=== PATIENT | male | born 1965 | race Caucasian/White ===

== ENCOUNTER → 2017-06-13 | Outpatient (CLI) | payer OTHER ==
--- NOTE | 2017-06-13 16:16 | XR ---
Lumbosacral spine HISTORY: Low back pain, sciatica 5 views of the lumbosacral spine Lumbar vertebral bodies show preserved height, alignment, and bone mineralization. There is multileve l spondylosis present. Some sclerosis of the right sacroiliac joint may be due to stress change. Ther e is a mild spinal curvature. 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 Loss of disc height present L4-5 and L 5-S1. Sclerosis present in the posterior elements of the lower lumbar spine. IMPRESSION: Degenerative disc disease and facet arthropathy. 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 Conside r lumbar MRI.
== END ==
LOC: RADXRMAIN 12:57
PROVIDERS: ATTEND Internal Medicine
DX: M51.36 Other intervertebral disc degeneration, lumbar region (principal); M43.06 Spondylolysis, lumbar region; M46.96 Unspecified inflammatory spondylopathy, lumbar region
CPT/HCPCS: 72110

== ENCOUNTER → 2017-09-14 | Outpatient (CLI) | payer OTHER ==
--- NOTE | 2017-09-14 10:38 | MR ---
EXAMINATION TYPE: MR thoracic spine wo con DATE OF EXAM: 09/14/2017 COMPARISON: NONE HISTORY: 51-year-old male Back pain, muscle spasms x 4 yrs. Ankylosing hyperostosis TECHNIQUE: Multiplanar, multisequence images of the thoracic spine were obtained without IV contrast. FINDINGS: Mild diffuse inhomogeneous signal of the marrow without suspicious bone marrow replacement. Findings suggest red marrow hyperplasia. Vertebral body heights are preserved. Alignment is maintained. Mild to moderate degenerative disc disease mid to lower thoracic spine with small endplate Schmorl's nodes and some disc desiccation and mild disc height loss. Scattered mild facet degenerative changes also present. At T4-T5, there is some right-sided ligamentum flavum thickening without spinal canal or neuroforamin al stenosis. At T5-T6, tiny left paracentral disc protrusion without significant canal or foraminal stenosis. At T6-T7, focal central, right paracentral disc protrusion focally indenting the ventral cord but not contributing to significant spinal canal or neuroforaminal stenosis. At T10-T11, there is right-sided facet degenerative change causing mild to moderate neuroforaminal st enosis. There is also some left-sided ligamentum flavum thickening. No spinal canal stenosis. Bulky left anterolateral endplate spurs in the lower thoracic spine. No prevertebral or paravertebral soft tissue probably seen. Normal course and signal intensity of the thoracic spinal cord. IMPRESSION: 1. Mild to moderate degenerative disc disease mid to lower thoracic spine. There are a few tiny disc herniations, largest at T6-T7 which focally indents the ventral cord but does not cause any significa nt spinal canal stenosis. 2. Scattered mild facet degenerative change. This contributes to mild to moderate neuroforaminal sten osis on the right at T10-T11. 3. Red marrow hyperplasia which can be seen in the setting of anemia, obesity, smoking, and chronic d isease.
== END | disposition home or self-care (01) ==
LOC: RADMRIMAIN 09:38
PROVIDERS: ATTEND Physical Medicine & Rehabilitation
DX: M99.72 Connective tissue and disc stenosis of intervertebral foramina of thoracic region (principal); M51.24 Other intervertebral disc displacement, thoracic region; M51.34 Other intervertebral disc degeneration, thoracic region; M47.814 Spondylosis without myelopathy or radiculopathy, thoracic region
CPT/HCPCS: 72146

== ENCOUNTER → 2019-11-07 | Outpatient (CLI) | payer MEDICAID ==
--- NOTE | 2019-11-07 10:55 | XR ---
EXAMINATION TYPE: XR chest 2V DATE OF EXAM: 11/07/2019 COMPARISON: NONE HISTORY: Presurgical study. TECHNIQUE: Frontal and lateral views of the chest are obtained. FINDINGS: There is no focal air space opacity, pleural effusion, or pneumothorax seen. The cardiac silhouette size is upper limits of normal. The osseous structures are intact. IMPRESSION: No acute cardiopulmonary process.
== END | disposition home or self-care (01) ==
LOC: RADXRMAIN 10:32
PROVIDERS: ATTEND Orthopaedic Surgery Orthopaedic Surgery of the Spine
DX: Z01.818 Encounter for other preprocedural examination (principal); M43.17 Spondylolisthesis, lumbosacral region
CPT/HCPCS: 71046

== ENCOUNTER 2019-11-11 09:47 | Observation (INO) | payer MEDICAID ==
[2019-11-09 10:12] VITALS: BMI 39.5
[~2019-11-11 09:47] MED LIST: ceFAZolin 1,000 MG in SODIUM CHLORIDE 0.9% IRRIGATIO 1,000 ML IRRIGATION ONE; ceFAZolin 3 GM in SODIUM CHLORIDE 0.9% 100 ML IVPB ONE
[2019-11-11] MEDS: LACTATED RINGERS 1,000 ML IV SCH (10:30)
[2019-11-11] MEDS ORDERED: LIDOCAINE 1% (10MG/ML) FOR IV START INTRADERMA ONE (10:31)
[2019-11-11] MEDS ORDERED: ONDANSETRON 4 MG/2 ML VIAL ONE (10:34)
[2019-11-11] MEDS ORDERED: ONDANSETRON 4 MG/2 ML VIAL IVP ONE (10:45)
[2019-11-11] MEDS ORDERED: LACTATED RINGERS 1,000 ML IV ONE ×2 (13:00→15:42)
[2019-11-11] MEDS ORDERED: LIDOCAINE 1% INJ 10MG/ML (20 ML MDV) ONE (13:18)
[2019-11-11] MEDS ORDERED: fentaNYL (PF) 50 MCG/ML 2 ML AMP ONE (13:18)
[2019-11-11] MEDS ORDERED: NEOSTIGMINE 1 MG/ML 10 ML VIAL ONE (13:18)
[2019-11-11] MEDS ORDERED: GLYCOPYRROLATE 0.2 MG/ML 2 ML VIAL ONE (13:18)
[2019-11-11] MEDS ORDERED: ROCURONIUM BROMIDE 10 MG/ML 5 ML VIAL IV ONE (13:18)
[2019-11-11] MEDS ORDERED: MIDAZOLAM 2 MG/2 ML VIAL ONE (13:18)
[2019-11-11] MEDS ORDERED: PROPOFOL 10 MG/ML 20 ML VIAL IV ONE (13:18)
[2019-11-11] MEDS ORDERED: VASOPRESSIN 20 UNIT/ML 1 ML VIAL ONE (13:18)
[2019-11-11] MEDS ORDERED: ALBUMIN HUMAN 5% (12.5gm) 250 ML BOTTLE IVPB ONE (13:18)
[2019-11-11] MEDS ORDERED: ePHEDrine SULFATE/0.9% NACL/PF 50 MG/5 ML SYRINGE IV ONE (13:18)
[2019-11-11] MEDS ORDERED: SUCCINYLCHOLINE CHLORIDE VIAL 200 MG/10 ML VIAL IV ONE (13:18)
[2019-11-11] MEDS ORDERED: PHENYLEPHRINE-0.9% NACL SYG 1 MG/10 ML SYRINGE ONE (13:18)
[2019-11-11] MEDS ORDERED: THROMBIN (BOVINE) 5,000 UNIT VIAL TOPICAL ONE (13:23)
[2019-11-11] MEDS ORDERED: GELATIN SPONGE,ABSORB (LARGE) 1 EACH SPONGE TOPICAL ONE (13:23)
[2019-11-11] MEDS ORDERED: LIDOCAINE 0.5%-EPI 1:200,000 50 ML VIAL SQ ONE (14:17)
[2019-11-11] MEDS ORDERED: ceFAZolin 1,000 MG in SODIUM CHLORIDE 0.9% 1,000 ML IRRIGATION ONE (15:11)
[2019-11-11] MEDS ORDERED: HYDROcodone/APAP 5-325MG 1 EACH TAB PO PRN (16:35)
[2019-11-11] MEDS ORDERED: BENZOCAINE/MENTHOL LOZENG 1 EACH LOZENGE MUCOUS MEM PRN (16:35)
[2019-11-11] MEDS ORDERED: ONDANSETRON 4 MG/2 ML VIAL IVP PRN (16:35)
[2019-11-11] MEDS ORDERED: HYDROmorphone 0.5 MG/0.5 ML SYRINGE IVP PRN (16:35)
[2019-11-11] MEDS ORDERED: MAGNESIUM HYDROXIDE 2,400 MG/10 ML CUP PO PRN (16:35)
[2019-11-11] MEDS ORDERED: FAMOTIDINE 20 MG TAB PO PRN (16:37)
[2019-11-11] MEDS ORDERED: HYDROcodone/APAP 7.5-325MG 1 EACH TAB PO PRN (16:37)
--- NOTE | 2019-11-11 16:44 | P.OP ---
Date of Procedure: 11/11/19 Preoperative Diagnosis: Spondylolysis L5, spondylolisthesis L5-S1, lower extremity radiculopathy, low back pain Postoperative Diagnosis: Same Anesthesia: GETA Pathology: none sent Condition: stable Disposition: PACU Description of Procedure: DESCRIPTION OF PROCEDURE(S): BRIEF OPERATIVE NOTE Preoperative Diagnosis: Spondylolysis L5, spondylolisthesis L5-S1, lower extremity radiculopathy, low back pain, Morbid obesity Postoperative Diagnosis: Same Procedure: Laminectomy and decompression L5-S1 Computer navigation aided Minimally invasive Posterior lateral decompression and fusion L5-S1 Minimally invasive Transforaminal lumbar interbody fusion for a 360 fusionL5-S1 Discectomy for decompression L5-S1 Placement of interbody graftL5-S1 Use of computer navigation for fusionL5-S1 Local autogenous bone grafting Aspiration of bone marrow from the pedicle of L5 Use of bone graft extenders Increased level of difficulty due to morbid obesity and body habitus Surgeon: Dr. Bethea Cementer Hand: Jaime COELLO who is present throughout the entire the case persistence during positioning, dissection, exposure, visualization, and all crucial elements of the case as well as closure. Anesthesia: General anesthesia per Dr. Suh Estimated blood loss: Approximately 200 mL Complications: None apparent Components implanted: K2M minimally invasive [place] pedicle screw system withscrews measuring 6.5 mm in diameter to rods one Jackson interbody cage with 10 mL of osteo amp bio4 bone graft substitute and 30 mL of the BX bone fibers to supplement the local autogenous bone graft and bone marrow aspirate Disposition: To recovery room in good stable condition. OPERATIVE INDICATIONS The patient has had severe issues at their lower extremity in her lower back over the past several Years which has been even worse over the past several months. He has been having worsening back pain which has been debilitating for him and causing him severe inability to do activities. he is unable to obtain any comfort. We did aggressive conservative treatment with medications therapy and interventional pain management however he was not having any relief. Imaging showed a spondylolysis with dynamic spondylolisthesis at L5-S1 and evidence of stenosis. She also showed evidence of a listhesis with some dynamic instability. The patient has been through conservative treatment. We discussed various treatment options including surgery, and the patient wishes to proceed with surgery We discussed the risk, patient's alternatives and benefits of surgery including but not limited to, risk of bleeding risk of infection, risk of need for further surgery, risk of decreased, loss of motion, muscle function, malunion nonunion, hardware failure, nerve damage, paralysis, heart attack, blindness and . She understood issues with the current pandemic and the possibility of exposure. OPERATIVE SUMMARY After discussing all the risks, patient alternatives and benefits at length, the patient elected to proceed with surgical intervention, signed informed consent, and presented for their procedure. The patient was seen and examined in the preoperative holding area and the surgical site was marked. The patient was given antibiotics and brought to the operating room. The patient was sedated and intubated by anesthesia in standard fashion. The patient was positioned on to the operating room table in a prone position on the appropriate frame which was well-padded and well molded. We were careful to pad any bony prominences and pressure points. We were careful to maintain the patient's cervical spine and good neutral alignment and position throughout. The patient was prepped and draped in a normal standard fashion. An appropriate timeout and keystone protocol performed. We were able to proceed with the surgery. The local wound area was infiltrated with local anesthetic. I was able utilize C-arm guidance to establish appropriate position over the pedicles bilaterally at the appropriate levelsOf L5-S1 . With the appropriate levels confirmed was able to make small stab incisions over the appropriate pedicle sites bilaterally. Utilizing C-arm in the computer navigation device I was able to establish bony landmarks at the right iliac crest for a bony reference point for the navigation device. I was able to establish a Jamshidi needle over the lateral aspect of the pedicle and advanced the trocar into the pedicle being careful not to breech superiorly inferiorly medially or laterally using computer navigation device. Position was confirmed regularly with AP and lateral images on C-arm and with the computer navigation device. I was able to establish the trocar into the pedicle appropriately into the posterior aspect of the vertebral body bilaterally at the appropriate levels. This was done at each of the pedicle positions and each of the vertebrae. I was able place the guidewire into the trocar and into the vertebral body appropriately under C-arm guidanceFor placement of the screws at L5-S1. At L5 on the right I did withdraw approximately 25 mL of bone marrow aspirate for use later in the case for grafting. Dissection was taken down over the wire to the appropriate starting position for the screw placed. The appropriate length screw was chosen, threaded over the guidewire and screwed appropriately into the pedicle and vertebral body under C-arm guidance in excellent alignment and position with good bony purchase. This is done at each of the screw sites at the appropriate levels. With the screws intact I extended the incision to connect the screw hole sites on the most symptomatic side on the Left. I dissected down to establish access over the pars and lamina to the base of the spinous process. I was able to expose the facet joint. The capsule the facet was taken down and showed some facet arthrosis at the joint. I was able to use a combination of curettes and Kerrison rongeurs and a high-speed drill to take down the facet joint and do a facetectomy. I was able get excellent foraminal decompression and central decompression with undermining across midline to perform a laminectomy centrally and contralaterally. As able get good central decompressionAt L5-S1. The ligamentum flavum was taken down to further decompress centrally and at bilateral neural foramen. I was able to expose the disc space and visualize the traversing nerve root. Note was made of some disc protrusion and disc herniation that was adherent to the traversing nerve root at the level causing further compression of the nerve root. I was able to establish a annulotomy at the appropriate level protecting soft tissue and neural structures. Note was made of some disc desiccation at the disc I performed a complete discectomy with accommodation of curettes and rasps and scrapers. I was able get good endplate preparation at the disc space. I sized for the appropriate size interbody spacer protecting the soft tissue and neural structures. The wound was copiously irrigated and suctioned dry. There is no evidence of any dural tear or leak. I was able to pack the disc space with local autogenous bone graft as well as a small amount of bone graft which was also placed into the interbody cage itself. Protecting the soft tissue structures and neural structures I was able place the interbody cage in Between the interbody space. There was some evidence that the cage was entering into the inferior endplate at L5 but this had good stability with fit and fill at the interbody space. His issues was confirmed with C-arm guidance. Good hemostasis maintained. There is no evidence of any dural tear or leak. The wound was irrigated and suctioned dry. With the hardware intact, intraoperative C-arm imaging was again taken which showed good alignment and position of the hardware at the appropriate levelsOf L5-S1. We were then able to measure, contour and place the rods and appropriate hardware bilaterally. I was able to place capcrews, tighten them down, and torque them with the torque screwdriver appropriately. With this intact I was able to place the local autogenous bone graft with additional bone graft enhancer as necessary into the posterior lateral gutters over the decorticated transverse processes and facet joints on the contralateral side. The remainder of the bone graft was placed over the facet joint on the contralateral side after taking down the facet joint capsule. With the bone graft intact, a stable construct, and good decompression at the appropriate levels, we were able to proceed with closure. Good hemostasis was maintained. There is no evidence of dural tear or leak. The fascia was closed for a watertight closure. he subcuticular tissue was closed with absorbable suture. The wound was cleaned an d dried and dressed with the appropriate dressing. The drapes were broken down. The patient was gently rolled back onto their hospital bed being careful to maintain their cervical spine and good neutral alignment and position. They were woken up by anesthesia, extubated, and brought to the recovery room in good stable condition. The patient will be admitted to the hospital for appropriate postoperative care, medical management and monitoring. We will continue to follow them closely about the postoperative course.
[2019-11-11] MEDS: HYDROmorphone 0.5 MG/0.5 ML SYRINGE IVP PRN ×4 (17:08→17:33)
[2019-11-11] MEDS: SODIUM CHLORIDE 0.9% 1,000 ML IV SCH (17:24)
[2019-11-11] MEDS ORDERED: diphenhydrAMINE 50 MG/ML 1 ML VIAL IVP ONE (17:32)
[2019-11-11 18:10] VITALS: RESP 17
[2019-11-11] MEDS: ALPRAZolam 1 MG TAB PO SCH (20:33)
[2019-11-11] MEDS: HYDROmorphone 1 MG/ML 1 ML SYRINGE IVP PRN (21:00)
[2019-11-12] MEDS: ceFAZolin 3 GM in SODIUM CHLORIDE 0.9% 100 ML IVPB SCH ×2 (00:02→08:50)
[2019-11-12] MEDS: HYDROmorphone 1 MG/ML 1 ML SYRINGE IVP PRN ×2 (01:46→06:17)
[2019-11-12] MEDS: LACTATED RINGERS 1,000 ML IV SCH (06:23)
[2019-11-12] MEDS: SODIUM CHLORIDE 0.9% 1,000 ML IV SCH (06:23)
[2019-11-12 07:36] LABS: Basophils % (A) 0 %; Eosinophils # (A) 0.1 k/uL (0-0.7); Eosinophils % (A) 1 %; HCT 41.1 % (39.0-53.0); HGB 13.6 gm/dL (13.0-17.5); Lymphocytes # (A) 0.6 k/uL (1.0-4.8); Lymphocytes % (A) 8 %; MCH 32.8 pg (25.0-35.0); MCHC 33.1 g/dL (31.0-37.0); MCV 99.1 fL (80.0-100.0); Mean Platelet Volume 6.8; Monocytes # (A) 0.5 k/uL (0-1.0); Monocytes % (A) 6 %; Neutrophils # (A) 6.5 k/uL (1.3-7.7); Neutrophils % (A) 84 %; Platelet Count 177 k/uL (150-450); RBC 4.15 m/uL (4.30-5.90); RDW 12.2 % (11.5-15.5); WBC 7.8 k/uL (3.8-10.6)
[2019-11-12 07:47] LABS: African American GFR (CKD) >90 (>60 ml/min/1.73 sqM); Anion Gap 7 mmol/L; Blood Urea Nitrogen 9 mg/dL (9-20); Calcium 8.4 mg/dL (8.4-10.2); Carbon Dioxide 29 mmol/L (22-30); Chloride 95 mmol/L (98-107); Glucose 118 mg/dL (74-99); Non-African American GFR(CKD) >90 (>60 ml/min/1.73 sqM); Potassium 4.1 mmol/L (3.5-5.1); Sodium 131 mmol/L (137-145)
[2019-11-12] MEDS: HYDROcodone/APAP 5-325MG 1 EACH TAB PO PRN ×2 (08:49→13:16)
[2019-11-12] MEDS: ALPRAZolam 1 MG TAB PO SCH (08:50)
[2019-11-12] MEDS ORDERED: SENNOSIDES-DOCUSATE SODIUM 1 EACH TAB PO SCH (09:00)
[2019-11-12] MEDS ORDERED: LISINOPRIL-HCTZ 20-25 MG 1 EACH TAB PO SCH (09:00)
--- NOTE | 2019-11-12 09:47 | FL ---
EXAMINATION TYPE: FL guidance operating room, XR lumbar spine 2 or 3V DATE OF EXAM: 11/11/2019 COMPARISON: NONE HISTORY: Lumbar fusion TECHNIQUE: Fluoroscopy. FINDINGS: Fluoroscopic guidance was provided during procedure for performing physician. A total of 25 seconds of fluoroscopic time was utilized during the procedure and 2 spot images was acquired. Ple ase see operative report for additional details. IMPRESSION: As Above.
--- NOTE | 2019-11-12 11:28 | P.CONS ---
History of Present Illness - Reason for Consult Consult date: 11/12/19 Medical management Requesting physician: Jennifer Bethea - History of Present Illness HISTORY OF PRESENT ILLNESS This is a 53-year-old male patient of Dr. Nuñez with past medical history of hypertension, gastroesophageal reflux disease, degenerative disc disease, osteoarthritis, tobacco use and dependence, daily alcohol use, marijuana use. Patient has been brought in the hospital under the care of Dr. Bethea for spondylolysis L5, spondylolisthesis L5-S1, lower extremity radiculopathy, low back pain status post laminectomy and decompression L5-S1. Patient is seen on postoperative day #1. His back pain is fairly well controlled. He is complaining of feeling tired. He states he has had ongoing back problems for greater than 10 years and his leg was giving out. Patient has been afebrile, heart rate 104, blood pressure 107/62 and pulse ox 92% on room air. Blood work reveals WBC 7.8, hemoglobin 13.6, platelet count 177. Sodium 131, potassium 4.1, chloride 95, CO2 29, BUN 9 and creatinine 0.9. Blood sugar 118. Patient is eating well with no nausea or vomiting. He is reaching 2000 on incentive spirometry. Patient believes that he may go home today. He is discharge plan is to return home with his . Patient was noted by nursing staff to have a drop in his pulse ox to 88 and 89% while he was sleeping. REVIEW OF SYSTEMS Constitutional: No fever, no chills, no night sweats. No weight change. No weakness, fatigue or lethargy. EENT: No headache. No blurred vision or double vision, no loss of vision. No loss of Hearing, no ringing in the ears, no dizziness. No nasal drainage or congestion. No epistaxis. No sore throat. Lungs: No shortness of breath, cough, no sputum production. No wheezing. Cardiovascular: No chest pain, no lower extremity edema. No palpitations. No paroxysmal nocturnal dyspnea. No orthopnea. No lightheadedness or dizziness. No syncopal episodes. Abdominal: No abdominal pain. No nausea, vomiting. No diarrhea. No constipation. No bloody or tarry stools. No loss of appetite. Genitourinary: No dysuria, increased frequency, urgency. No urinary retention. Musculoskeletal: No myalgias. No muscle weakness, no gait dysfunction, no frequent falls. Reports expected back pain. No neck pain. Integumentary: No wounds, no lesions. No rash or pruritus. No unusual bruising. No change in hair or nails. Neurologic: No aphasia. No facial droop. No change in mentation. No head injury. No headache. No paralysis. No paresthesia. Psychiatric: No depression. No anxiety. No mood swings. Endocrine: No abnormal blood sugars. No weight change. SOCIAL HISTORY Patient is a smoker three-quarter pack per day for 45 years. He also drinks at least 6 beers per day. Patient uses CBD oil and smokes marijuana occasionally. He lives at home with his . He retired in May 2019 and is on disability. 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 FAMILY HISTORY Father is at age 66 with history of Alzheimer's dementia and TIA. Mother at age 73 from some type of cancer. Patient has 1 brother with no major medical problems. Patient has a total of 4 sisters one has from motor vehicle accident and one has rheumatoid arthritis. Patient has 3 children and one son age 24 needs a hip replacement. PHYSICAL EXAMINATION Gen: This is a 53-year-old male. He is sitting up in bed and appears to become 12 and in no acute distress. HEENT: Head is atraumatic, normocephalic. Pupils equal, round. Sclerae is anicteric. NECK: Supple. No JVD. No lymphadenopathy. No thyromegaly. LUNGS: Clear to auscultation. No wheezes or rhonchi. No intercostal retractions. HEART: Regular rate and rhythm. No murmur. ABDOMEN: Soft. Bowel sounds are present. No masses. No tenderness. EXTREMITIES: No pedal edema. No calf tenderness. NEUROLOGICAL: Patient is awake, alert and oriented x3. Cranial nerves 2 through 12 are grossly intact. ASSESSMENT AND PLAN 1. Spondylolysis L5, spondylolisthesis L5-S1, lower extremity radiculopathy, low back pain status post laminectomy and decompression L5-S1. Continue current pain management, PT and OT per orthopedics. Continue incentive spirometry to reduce incidence of atelectasis and hospital acquired pneumonia. 2. Hypertension. Continue lisinopril hydrochlorothiazide 1 daily. 3. GERD. Continue famotidine. 4. Generalized anxiety disorder. Continue Xanax 1 mg twice daily. 5. Suspected AVERY. Recommend OP sleep study. 6. Tobacco use and dependence. 7. Alcohol use. 8. Alcohol and CBD use. Thank you Dr. Bethea for this consultation. We will be happy to follow along with you in the care of this patient. Discharge plan: home. Impression and plan of care have been directed as dictated by the signing ph ysician. Patience Hernandez nurse practitioner acting as scribe for signing physician. Past Medical History Past Medical History: GERD/Reflux, Hypertension, Osteoarthritis (OA) Additional Past Medical History / Comment(s): varicose veins, arthritis in back, degenerative disks, herniated disk, spondylolysis, History of Any Multi-Drug Resistant Organisms: None Reported Past Surgical History: Orthopedic Surgery Additional Past Surgical History / Comment(s): surgery for fx jaw, surgery for Fx nose, left knee arthroscopy, surgery to repair rectal fisutla Past Anesthesia/Blood Transfusion Reactions: No Reported Reaction Past Psychological History: Anxiety, Depression Smoking Status: Current every day smoker Past Alcohol Use History: Daily Additional Past Alcohol Use History / Comment(s): smokes 3/4 PPD, has smoked for 40 yrs. PATIENT REPORTS DRINKING 6 BEERS DAILY, HAS NEVER WITHDRAWN FROM ETOH IN PAST WHEN NOT DRINKING Past Drug Use History: Marijuana Additional Drug Use History / Comment(s): CBD lotion, SMOKES MARIJUANA OCCASIONALLY - Past Family History Mother Family Medical History: Cancer Medications and Allergies Home Medications Medication Instructions Recorded Confirmed Type ALPRAZolam [Xanax] 1 mg PO BID 11/09/19 11/11/19 History Famotidine 10 mg PO DAILY PRN 11/09/19 11/11/19 History Hydrocodone/Acetaminophen [[place] 1 tab PO TID PRN 11/09/19 11/11/19 History 7.5-325] Lisinopril-Hctz 20-25 mg 1 tab PO DAILY 11/09/19 11/11/19 History [Zestoretic 20-25] Cannabidiol (Cbd) [Epidiolex] 0 mg PO DIRECTED 11/10/19 11/11/19 History Allergies Allergy/AdvReac Type Severity Reaction Status Date / Time aspirin Allergy Nausea Verified 11/11/19 10:06 NSAIDS (Non-Steroidal Allergy Nausea Verified 11/11/19 10:06 Anti-Inflamma Physical Exam Vitals: Vital Signs Temp Pulse Pulse Resp BP BP Pulse Ox 11/12/19 07:00 98.4 F 104 H 17 107/62 92 L 11/12/19 01:45 98.2 F 101 H 115/74 93 L 11/11/19 19:30 90 102/63 95 11/11/19 19:05 89 119/76 94 L 11/11/19 19:00 90 123/74 93 L 11/11/19 18:55 97.5 F L 92 115/71 94 L 11/11/19 18:45 84 115/71 93 L 11/11/19 18:30 96 129/77 96 11/11/19 18:15 91 92/68 90 L 11/11/19 18:09 97.7 F 103 H 17 111/67 94 L 11/11/19 18:00 97.5 F L 101 H 111/67 11/11/19 17:33 109 H 18 95/57 93 L 11/11/19 17:18 101 H 18 91/51 95 11/11/19 17:03 101 H 18 93/49 95 11/11/19 16:48 97 F L 114 H 18 108/50 96 11/11/19 10:19 98.4 F 104 H 20 126/82 98 Intake and Output 11/11/19 11/12/19 11/12/19 22:59 06:59 14:59 Intake Total 1146 1490 Output Total 900 Balance 1146 590 Intake: IV 1026 Intake, IV Titration 850 Amount Sodium Chloride 0.9% 1, 750 000 ml @ 75 mls/hr IV . [id number] [facility] Rx#:[id number] ceFAZolin 3 gm In Sodium 100 Chloride 0.9% 100 ml @ 200 mls/hr IVPB Q8HR [facility] Rx#:[id number] Oral 120 640 Output: Urine 900 Other: Voiding Method Toilet Toilet # Voids 1 1 Weight 135 kg Results CBC & Chem 7: 11/12/19 06:54 11/12/19 06:54 Labs: Abnormal Lab Results - Last 24 Hours (Table) 11/12/19 11/12/19 Range/Units 06:54 06:54 RBC 4.15 L (4.30-5.90) m/uL Lymphocytes # 0.6 L (1.0-4.8) k/uL Sodium 131 L (137-145) mmol/L Chloride 95 L (98-107) mmol/L Glucose 118 H (74-99) mg/dL
[2019-11-12 14:11] VITALS: BP 123/83; PULSE 103; TEMP 99.8
--- NOTE | 2019-11-12 14:43 | P.DS ---
Providers Date of admission: 11/12/19 01:46 Attending physician: Jennifer Bethea Consults: 11/11/19 16:35 Consult Physician Routine Consulting Provider: Eze Shook Reason/Comments: Medical management Do you want consulting provider notified?: Yes Primary care physician: [facility] Course: The patient presented on the day of admission as per their operative note.he had a dynamic spondylolisthesis with spondylolysis at L5-S1. He feels that his back is sore but he has been able to get up and around. He feels his pain is adequately controlled with oral medication. He has been able to void freely. He is passing gas and tolerating his regular diet. Physical Exam The incision site is clean dry and intact. There is no erythema no drainage. There is no purulence no evidence of infection.his back incision site appears clear with the dressing intact. Abdomen soft and nontender. Chest has good excursion with deep inspiration and expiration. The patient has active and passive range of motion intact at the upper and lower extremities. There is no acute change in neurologic status.he has sustained dorsal flexion plantarflexion and EHL intact. Thighs and calves are Soft nontender. Hospital Course postoperative day 1 status post minimally invasive decompression and fusion L5 S1 for his dynamic spondylolisthesis with stenosis and spondylolysis. Improving well. The patient has been making good progress postoperatively. They have completed the prophylactic antibiotics without any signs or symptoms of infection. The patient has been able to advance their diet, and is tolerating diet adequately. The pain was initially controlled with IV medications and is now controlled appropriately with oral medications. The patient has been able to increase their mobilization. The patient has progressed appropriately. I think they are in good stable condition for discharge today. They will be sent home with appropriate prescriptions. we will give him a new prescription for [place]. I answered their questions to the best of my ability in a language that they can understand and they are agreeable with the plan. They will follow up as directedin approximately 2 weeks or sooner if he is having any problems.. Patient Condition at Discharge: Fair Plan - Discharge Summary Discharge Rx Participant: Yes New Discharge Prescriptions: No Action Lisinopril-Hctz 20-25 mg [Zestoretic 20-25] 1 tab PO DAILY Hydrocodone/Acetaminophen [[place] 7.5-325] 1 tab PO TID PRN PRN Reason: Pain ALPRAZolam [Xanax] 1 mg PO BID Famotidine 10 mg PO DAILY PRN PRN Reason: Heartburn Cannabidiol (Cbd) [Epidiolex] 0 mg PO DIRECTED Discharge Medication List ALPRAZolam [Xanax] 1 mg PO BID 11/09/19 [History] Famotidine 10 mg PO DAILY PRN 11/09/19 [History] Hydrocodone/Acetaminophen [[place] 7.5-325] 1 tab PO TID PRN 11/09/19 [History] Lisinopril-Hctz 20-25 mg [Zestoretic 20-25] 1 tab PO DAILY 11/09/19 [History] Cannabidiol (Cbd) [Epidiolex] 0 mg PO DIRECTED 11/10/19 [History]
== END 2019-11-12 15:38 | disposition home or self-care (01) ==
LOC: OR 09:47 → 4SSUR 16:33 → OR 11-12 04:11
PROVIDERS: ADMIT Orthopaedic Surgery Orthopaedic Surgery of the Spine; ATTEND Orthopaedic Surgery Orthopaedic Surgery of the Spine
DX: M43.17 Spondylolisthesis, lumbosacral region (principal); M47.27 Other spondylosis with radiculopathy, lumbosacral region; M51.16 Intervertebral disc disorders with radiculopathy, lumbar region; M25.78 Osteophyte, vertebrae; M51.17 Intervertebral disc disorders with radiculopathy, lumbosacral region; M48.07 Spinal stenosis, lumbosacral region; I10 Essential (primary) hypertension; E66.01 Morbid (severe) obesity due to excess calories; H91.90 Unspecified hearing loss, unspecified ear; M41.9 Scoliosis, unspecified; F17.210 Nicotine dependence, cigarettes, uncomplicated; K21.9 Gastro-esophageal reflux disease without esophagitis; F41.1 Generalized anxiety disorder; I83.90 Asymptomatic varicose veins of unspecified lower extremity; F32.9 Major depressive disorder, single episode, unspecified; Z68.39 Body mass index [BMI] 39.0-39.9, adult; Z88.6 Allergy status to analgesic agent; Z88.5 Allergy status to narcotic agent; Z79.899 Other long term (current) drug therapy; Z79.891 Long term (current) use of opiate analgesic; Z97.3 Presence of spectacles and contact lenses; Z98.890 Other specified postprocedural states; Z97.2 Presence of dental prosthetic device (complete) (partial); Z80.9 Family history of malignant neoplasm, unspecified; Z82.0 Family history of epilepsy and other diseases of the nervous system; Z82.3 Family history of stroke; Z82.61 Family history of arthritis
CPT/HCPCS: 22633; 20939; 20936; 22853; 20930; 22840; 61783; 97161; 80048; 85025; 72100; G0378; C1713; P9045; J2250; J0330; J1200; J2710; J0690 ×3; J2405; J2001; J3010; J1170 ×3; J2370; J2704

== ENCOUNTER 2020-08-25 10:20 | Inpatient (IN) | payer MEDICAID, OTHER ==
[2020-08-25 11:00] LABS: Glucose,Whole Blood 148 mg/dL (75-99)
[2020-08-25] MEDS ORDERED: LEVOFLOXACIN 750MG-D5W PMX 750 MG in DEXTROSE/WATER 1 150ML.BAG IVPB STA (12:00)
--- NOTE | 2020-08-25 12:16 | ED ---
General Adult HPI - General Chief complaint: Abdominal Pain Stated complaint: Male Time Seen by Provider: 08/25/20 10:30 Source: patient, RN notes reviewed, old records reviewed Mode of arrival: ambulatory Limitations: no limitations - History of Present Illness Initial comments: This is a 54-year-old male who presents emergency Department complaining of severe pain in his perineum area patient states it feels like in the area of his prostate. Patient states having a bowel movement extremely painful. Patient states the last few days had a fever. Patient denies any abdominal pain. Patient denies dysuria hematuria urinary frequency. Patient denies a cough patient denies any difficulty breathing or shortness of breath. - Related Data Home Medications Medication Instructions Recorded Confirmed ALPRAZolam [Xanax] 1 mg PO BID 11/09/19 08/25/20 Lisinopril-Hctz 20-25 mg 1 tab PO DAILY 11/09/19 08/25/20 [Zestoretic 20-25] HYDROcodone/APAP 10-325MG [[place] 1 tab PO Q8H 08/25/20 08/25/20 10-325] Allergies Allergy/AdvReac Type Severity Reaction Status Date / Time aspirin AdvReac Nausea Verified 08/25/20 12:15 NSAIDS (Non-Steroidal AdvReac Nausea Verified 08/25/20 12:15 Anti-Inflamma Review of Systems ROS Statement: Those systems with pertinent positive or pertinent negative responses have been documented in the HPI. ROS Other: All systems not noted in ROS Statement are negative. Past Medical History Past Medical History: GERD/Reflux, Hypertension, Osteoarthritis (OA) Additional Past Medical History / Comment(s): varicose veins, arthritis in back, degenerative disks, herniated disk, spondylolysis, History of Any Multi-Drug Resistant Organisms: None Reported Past Surgical History: Back Surgery, Orthopedic Surgery Additional Past Surgical History / Comment(s): surgery for fx jaw, surgery for Fx nose, left knee arthroscopy, surgery to repair rectal fisutla Past Anesthesia/Blood Transfusion Reactions: No Reported Reaction Past Psychological History: Anxiety, Depression Smoking Status: Current every day smoker Past Alcohol Use History: Daily Past Drug Use History: Marijuana - Past Family History Mother Family Medical History: Cancer General Exam - General Exam Comments Initial Comments: GENERAL: Patient is well-developed and well-nourished. Patient is nontoxic and well-hydr ated and is in moderate distress. ENT: Neck is soft and supple. No significant lymphadenopathy is noted. Oropharynx is clear. Moist mucous membranes. Neck has full range of motion without eliciting any pain. There is no thyroid enlargement and no masses were felt. EYES: The sclera were anicteric and conjunctiva were pink and moist. Extraocular movements were intact and pupils were equal round and reactive to light. Eyelids were unremarkable. PULMONARY: Unlabored respirations. Good breath sounds bilaterally. No audible rales rhonchi or wheezing was noted. CARDIOVASCULAR: There is a regular rate and rhythm without any murmurs gallops or rubs. GENITALIA: The perineum shows no rash or swelling however on rectal exam patient's prostate is extremely tender ABDOMEN: Soft and nontender with normal bowel sounds. SKIN: Skin is clear with no lesions or rashes and otherwise unremarkable. NEUROLOGIC: Patient is alert and oriented x3. Cranial nerves II through XII are grossly int act. Motor and sensory are also intact. Normal speech, volume and content. Symmetrical smile. Cerebellar exam grossly intact. MUSCULOSKELETAL: Normal extremities with adequate strength and full range of motion. No lower extremity swelling or edema. No calf tenderness. LYMPHATICS: No significant lymphadenopathy is noted PSYCHIATRIC: Normal psychiatric evaluation. Limitations: no limitations Course Vital Signs 08/25/20 08/25/20 08/25/20 10:29 11:05 12:12 Temperature 98.2 F Pulse Rate 123 H 102 H 69 Respiratory 18 20 18 Rate Blood Pressure 76/55 87/69 116/79 O2 Sat by Pulse 94 L 93 L 98 Oximetry Medical Decision Making - Medical Decision Making I started the patient on Levaquin for the suspected prostatitis. I spoke with Dr. Matthew he agreed to admit the patient admitted the patient wrote admitting orders. I also spoke with urology and they were fine with being on consult. I consider the patient's septic. She didn't pass out prior to coming back to his room which I did not know until much later. Patient also was hypotensive at that time. Patient was noted to be septic at 2:15 Patient received 2 L of fluid. Patient's blood pressure remained normal at this point time. Patient is ideal body weight is 83.5 kg EKG showed normal sinus rhythm at 76 bpm MI interval is 170 QRS is 80 QT interval 340 QTC is 382. Patient's EKG shows no ST segment elevation or depression. - Lab Data Result diagrams: 08/25/20 12:16 08/25/20 12:16 Lab Results 08/25/20 08/25/20 08/25/20 Range/Units 10:57 12:16 12:16 WBC 13.9 H (3.8-10.6) k/uL RBC 4.71 (4.30-5.90) m/uL Hgb 14.9 (13.0-17.5) gm/dL Hct 44.3 (39.0-53.0) % MCV 94.0 (80.0-100.0) fL MCH 31.6 (25.0-35.0) pg MCHC 33.6 (31.0-37.0) g/dL RDW 12.5 (11.5-15.5) % Plt Count 301 (150-450) k/uL MPV 7.8 Neutrophils % 83 % Lymphocytes % 8 % Monocytes % 7 % Eosinophils % 1 % Basophils % 1 % Neutrophils # 11.5 H (1.3-7.7) k/uL Lymphocytes # 1.1 (1.0-4.8) k/uL Monocytes # 1.0 (0-1.0) k/uL Eosinophils # 0.2 (0-0.7) k/uL Basophils # 0.1 (0-0.2) k/uL PT 10.7 (9.0-12.0) sec INR 1.0 (<1.2) APTT 23.1 (22.0-30.0) sec Sodium (137-145) mmol/L Potassium (3.5-5.1) mmol/L Chloride (98-107) mmol/L Carbon Dioxide (22-30) mmol/L Anion Gap mmol/L BUN (9-20) mg/dL Creatinine (0.66-1.25) mg/dL Est GFR (CKD-EPI)AfAm (>60 ml/min/1.73 sqM) Est GFR (CKD-EPI)NonAf (>60 ml/min/1.73 sqM) Glucose (74-99) mg/dL POC Glucose (mg/dL) 148 H (75-99) mg/dL POC Glu Scientific Photographer ID Danita Siddiqi Lactic Ac Sepsis Rflx Plasma Lactic Acid Timur (0.7-2.0) mmol/L Calcium (8.4-10.2) mg/dL Total Bilirubin (0.2-1.3) mg/dL AST (17-59) U/L ALT (4-49) U/L Alkaline Phosphatase (38-126) U/L Total Protein (6.3-8.2) g/dL Albumin (3.5-5.0) g/dL 08/25/20 08/25/20 08/25/20 Range/Units 12:16 12:16 13:11 WBC (3.8-10.6) k/uL RBC (4.30-5.90) m/uL Hgb (13.0-17.5) gm/dL Hct (39.0-53.0) % MCV (80.0-100.0) fL MCH (25.0-35.0) pg MCHC (31.0-37.0) g/dL RDW (11.5-15.5) % Plt Count (150-450) k/uL MPV Neutrophils % % Lymphocytes % % Monocytes % % Eosinophils % % Basophils % % Neutrophils # (1.3-7.7) k/uL Lymphocytes # (1.0-4.8) k/uL Monocytes # (0-1.0) k/uL Eosinophils # (0-0.7) k/uL Basophils # (0-0.2) k/uL PT (9.0-12.0) sec INR (<1.2) APTT (22.0-30.0) sec Sodium 128 L (137-145) mmol/L Potassium 3.7 (3.5-5.1) mmol/L Chloride 90 L (98-107) mmol/L Carbon Dioxide 29 (22-30) mmol/L Anion Gap 9 mmol/L BUN 14 (9-20) mg/dL Creatinine 1.19 (0.66-1.25) mg/dL Est GFR (CKD-EPI)AfAm 79 (>60 ml/min/1.73 sqM) Est GFR (CKD-EPI)NonAf 68 (>60 ml/min/1.73 sqM) Glucose 142 H (74-99) mg/dL POC Glucose (mg/dL) (75-99) mg/dL POC Glu Scientific Photographer ID Lactic Ac Sepsis Rflx Y Plasma Lactic Acid Timur 2.8 H* (0.7-2.0) mmol/L Calcium 9.2 (8.4-10.2) mg/dL Total Bilirubin 1.0 (0.2-1.3) mg/dL AST 39 (17-59) U/L ALT 40 (4-49) U/L Alkaline Phosphatase 85 (38-126) U/L Total Protein 7.5 (6.3-8.2) g/dL Albumin 4.3 (3.5-5.0) g/dL Critical Care Time Critical Care Time: Yes Total Critical Care Time: 35 Disposition Clinical Impression: Sepsis, Prostatitis Disposition: ADMITTED IP TO THIS HOSP Referrals: Isaac Nuñez MD [Primary Care Provider] - 1-2 days Time of Disposition: 15:09
[2020-08-25] MEDS ORDERED: ACETAMINOPHEN TAB 500 MG TAB PO STA (12:19)
[2020-08-25] MEDS ORDERED: HYDROmorphone 0.5 MG/0.5 ML SYRINGE IVP STA ×2 (12:19→13:12)
[2020-08-25 12:27] LABS: Basophils # (A) 0.1 k/uL (0-0.2); Basophils % (A) 1 %; Eosinophils # (A) 0.2 k/uL (0-0.7); Eosinophils % (A) 1 %; HCT 44.3 % (39.0-53.0); HGB 14.9 gm/dL (13.0-17.5); Lymphocytes # (A) 1.1 k/uL (1.0-4.8); Lymphocytes % (A) 8 %; MCH 31.6 pg (25.0-35.0); MCHC 33.6 g/dL (31.0-37.0); Mean Platelet Volume 7.8; Monocytes % (A) 7 %; Neutrophils # (A) 11.5 k/uL (1.3-7.7); Neutrophils % (A) 83 %; Platelet Count 301 k/uL (150-450); RBC 4.71 m/uL (4.30-5.90); RDW 12.5 % (11.5-15.5); WBC 13.9 k/uL (3.8-10.6)
[2020-08-25] MEDS: SODIUM CHLORIDE 0.9% 500 ML 500 ML IV SCH ×2 (12:32→18:08)
[2020-08-25 12:35] LABS: Partial Thromboplastin Time 23.1 sec (22.0-30.0); Prothrombin Time 10.7 sec (9.0-12.0)
[2020-08-25 13:10] LABS: Potassium 3.7 mmol/L (3.5-5.1)
[2020-08-25 13:13] LABS: Albumin 4.3 g/dL (3.5-5.0); Calcium 9.2 mg/dL (8.4-10.2); Total Protein 7.5 g/dL (6.3-8.2)
[2020-08-25 16:50] LABS: Appearance,Urine Cloudy (Clear); Bilirubin,Urine 1+ (Negative); Blood,Urine Negative (Negative); Color,Urine Dark Brown; Glucose,Urine (UA) Trace (Negative); Ketones,Urine Negative (Negative); Leukocyte Esterase,Urine Trace (Negative); Mucus,Urine Rare /hpf; Nitrite,Urine Negative (Negative); Protein,Urine 2+ (Negative); RBC,Urine <1 /hpf (0-5); Specific Gravity,Urine 1.034 (1.001-1.035); WBC,Urine <1 /hpf (0-5)
[2020-08-25] MEDS: SODIUM CHLORIDE 0.9% 1,000 ML IV SCH ×2 (18:09→23:23)
[2020-08-25] MEDS: MORPHINE SULFATE 4 MG/ML SYRINGE IVP PRN (20:33)
[2020-08-25] MEDS: PANTOPRAZOLE 40 MG/10 ML VIAL IVP SCH (22:13)
[2020-08-25] MEDS: ACETAMINOPHEN TAB 325 MG TAB PO PRN (22:13)
[2020-08-26] MEDS: MORPHINE SULFATE 4 MG/ML SYRINGE IVP PRN ×2 (02:08→07:58)
[2020-08-26] MEDS: SODIUM CHLORIDE 0.9% 1,000 ML IV SCH ×3 (05:51→21:16)
[2020-08-26] MEDS: PANTOPRAZOLE 40 MG/10 ML VIAL IVP SCH ×2 (07:58→21:14)
[2020-08-26] MEDS: HYDROcodone/APAP 10-325MG 1 EACH TAB PO SCH ×3 (09:30→23:47)
[2020-08-26] MEDS: ALPRAZolam 1 MG TAB PO SCH ×2 (09:30→21:14)
[2020-08-26] MEDS: LISINOPRIL-HCTZ 20-25 MG 1 EACH TAB PO SCH (09:31)
--- NOTE | 2020-08-26 11:03 | P.HPIM ---
History of Present Illness H&P Date: 08/26/20 HISTORY OF PRESENT ILLNESS This is a 54-year-old male patient of Dr. Nuñez with past medical history of hypertension, gastroesophageal reflux disease, degenerative disc disease, osteoarthritis, tobacco use and dependence, history of daily alcohol use, marijuana use. Patient had a recent hospitalization October 2019 at which time he was admitted under the care of Dr. Bethea for spondylolysis L5, spondylolisthesis L5-S1, lower extremity radiculopathy, low back pain status post laminectomy and decompression L5-S1. Patient complains of severe pain in the perineum area which he describes as between his testicles and rectum. He states the pain has been going on for about 2 weeks and gradually worsening. He initially thought that it was a boil because he had one on his right thigh a few weeks ago. He states the pain is a throbbing type pain and increases if he squeezes his rectum. He has had no drainage from the area. He complains of fever for the past 3 days. Patient contacted his PCP and was recommended to come in the hospital for evaluation. No dysuria, hematuria, urinary frequency. Patient came into [facility] emergency center for evaluation found to have fever of 100.7, heart rate 101, blood pressure 131/82, pulse ox 98% on room air. EKG is a sinus rhythm with no acute ST changes. WBC 13.9, hemoglobin 14.9, platelet count 301. Sodium 128, potassium 3.7, chloride 90, CO2 29, BUN 14 and creatinine 1.19. Blood sugar 142. Lactic acid initially 2.8 with repeat of 2.5 and 1.5. Liver function tests were normal. Albumin 4.3. Coronal virus not detected. Urinalysis was dark brown, protein 2+, blood trace, bilirubin 1+, leukoesterase trace. Patient received 2 L of IV fluid, started on Levaquin, consult with urology and admitted to the [facility] floor. We have ordered ultrasound of the pelvis, prostate, scrotum. REVIEW OF SYSTEMS Constitutional: Reports fever, no chills, no night sweats. No weight change. No weakness, fatigue or lethargy. EENT: No headache. No blurred vision or double vision, no loss of vision. No loss of Hearing, no ringing in the ears, no dizziness. No nasal drainage or congestion. No epistaxis. No sore throat. Lungs: No shortness of breath, cough, no sputum production. No wheezing. Cardiovascular: No chest pain, no lower extremity edema. No palpitations. No paroxysmal nocturnal dyspnea. No orthopnea. No lightheadedness or dizziness. No syncopal episodes. Abdominal: No abdominal pain. No nausea, vomiting. No diarrhea. No constipation. No bloody or tarry stools. No loss of appetite. Genitourinary: No dysuria, increased frequency, urgency. No urinary retention. Denies hematuria Musculoskeletal: No myalgias. No muscle weakness, no gait dysfunction, no frequent falls. Denies back pain. No neck pain. Integumentary: No wounds, no lesions. No rash or pruritus. No unusual bruising. No change in hair or nails. Neurologic: No aphasia. No facial droop. No change in mentation. No head injury. No headache. No paralysis. No paresthesia. Psychiatric: No depression. No anxiety. No mood swings. Endocrine: No abnormal blood sugars. No weight change. SOCIAL HISTORY Patient is a smoker three-quarter pack per day for 45 years and recently cut down to 8 cigarettes per day. He has history of alcohol abuse drinking 6 beers per day but has been rarely drinking since surgery in October 2019. Patient uses CBD oil and smokes marijuana occasionally. He lives at home with his . He retired in May 2019 and is on disability. 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 FAMILY HISTORY Father is at age 66 with history of Alzheimer's dementia and TIA. Mother at age 73 from some type of cancer. Patient has 1 brother with no major medical problems. Patient has a total of 4 sisters one has from motor vehicle accident and one has rheumatoid arthritis. Patient has 3 children and one son age 24 needs a hip replacement. PHYSICAL EXAMINATION Gen: This is a 54-year-old male. He is sitting up in bed and appears to be in no acute distress. HEENT: Head is atraumatic, normocephalic. Pupils equal, round. Sclerae is anicteric. NECK: Supple. No JVD. No lymphadenopathy. No thyromegaly. LUNGS: Clear to auscultation. No wheezes or rhonchi. No intercostal retractions. HEART: Regular rate and rhythm. No murmur. ABDOMEN: Soft. Bowel sounds are present. No masses. No tenderness. Patient has significant tenderness at the perineum area. No abnormality noted with the testicles. Patient had rectal exam done in the emergency center that revealed tenderness to the prostate. EXTREMITIES: No pedal edema. No calf tenderness. NEUROLOGICAL: Patient is awake, alert and oriented x3. Cranial nerves 2 through 12 are grossly intact. ASSESSMENT AND PLAN 1. Sepsis secondary to prostatitis with negative urinalysis. [facility], continue IV fluids 0.9 normal saline at 130 mL per hour, Levaquin will be changed to 500 mg daily, consult with urology, ultrasound of the pelvic, prostate and scrotum. 2. Hypertension. Continue lisinopril hydrochlorothiazide 1 daily with parameter s. 3. GERD and GI prophylaxis. Protonix 40 mg IV push twice daily. 4. Generalized anxiety disorder. Continue Xanax 1 mg twice daily. 5. Suspected AVERY. Recommend OP sleep study. Patient states he has not had a sleep study done. 6. Tobacco use and dependence. Patient declines need for nicotine patch. 7. History of alcohol abuse. Patient has cut back his alcohol intake to rarely. 8. Spondylolysis L5, spondylolisthesis L5-S1, lower extremity radiculopathy, low back pain status post laminectomy and decompression L5-S1. 9. DVT prophylaxis. Heparin 5000 units subcu every 8 hours. Patient admitted to the hospital for a minimum of 2 night stay. DISCHARGE PLAN Home. Impression and plan of care have been directed as dictated by the signing physician. Patience Hernandez nurse practitioner acting as scribe for signing physician. 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; spinal fusion L4-L5 Past Anesthesia/Blood Transfusion Reactions: No Reported Reaction Past Psychological History: Anxiety, Depression Smoking Status: Current every day smoker Past Alcohol Use History: Daily Additional Past Alcohol Use History / Comment(s): smokes 3/4 PPD, has smoked for 40 yrs Past Drug Use History: Marijuana Additional Drug Use History / Comment(s): CBD lotion, SMOKES MARIJUANA OCCASIONALLY - Past Family History Mother Family Medical History: Cancer Medications and Allergies Home Medications Medication Instructions Recorded Confirmed Type ALPRAZolam [Xanax] 1 mg PO BID 11/09/19 08/25/20 History Lisinopril-Hctz 20-25 mg 1 tab PO DAILY 11/09/19 08/25/20 History [Zestoretic 20-25] HYDROcodone/APAP 10-325MG [[place] 1 tab PO Q8H 08/25/20 08/25/20 History 10-325] Allergies Allergy/AdvReac Type Severity Reaction Status Date / Time aspirin AdvReac Nausea Verified 08/25/20 12:15 NSAIDS (Non-Steroidal AdvReac Nausea Verified 08/25/20 12:15 Anti-Inflamma Physical Exam Vitals: Vital Signs Temp Pulse Pulse Resp BP BP Pulse Ox 08/26/20 05:00 98.7 F 93 18 107/68 95 08/25/20 23:27 99.2 F 08/25/20 20:10 101 H 16 08/25/20 20:00 100.7 F H 101 H 16 131/82 98 08/25/20 19:49 98 F 98 20 125/74 97 08/25/20 19:00 129 H 10 L 153/107 97 08/25/20 18:11 87 18 114/81 98 08/25/20 17:52 92 18 108/67 97 08/25/20 16:32 97.9 F 85 18 108/86 98 08/25/20 12:12 69 18 116/79 98 08/25/20 11:05 102 H 20 87/69 93 L 08/25/20 10:29 98.2 F 123 H 18 76/55 94 L Intake and Output 08/25/20 08/26/20 08/26/20 22:59 06:59 14:59 Output Total 900 700 Balance -900 -700 Output: Urine 900 700 Other: Voiding Method Urinal Urinal Weight 131.542 kg Results CBC & Chem 7: 08/25/20 12:16 08/25/20 12:16 Labs: Abnormal Lab Results - Last 24 Hours (Table) 08/25/20 08/25/20 08/25/20 Range/Units 10:43 10:57 12:16 WBC 13.9 H (3.8-10.6) k/uL Neutrophils # 11.5 H (1.3-7.7) k/uL Sodium (137-145) mmol/L Chloride (98-107) mmol/L Glucose (74-99) mg/dL POC Glucose (mg/dL) 148 H (75-99) mg/dL Plasma Lactic Acid Timur (0.7-2.0) mmol/L Urine Protein 2+ H (Negative) Urine Glucose (UA) Trace H (Negative) Urine Bilirubin 1+ H (Negative) Ur Leukocyte Esterase Trace H (Negative) Urine Mucus Rare H (None) /hpf 08/25/20 08/25/20 08/25/20 Range/Units 12:16 12:16 16:20 WBC (3.8-10.6) k/uL Neutrophils # (1.3-7.7) k/uL Sodium 128 L (137-145) mmol/L Chloride 90 L (98-107) mmol/L Glucose 142 H (74-99) mg/dL POC Glucose (mg/dL) (75-99) mg/dL Plasma Lactic Acid Timur 2.8 H* 2.5 H* (0.7-2.0) mmol/L Urine Protein (Negative) Urine Glucose (UA) (Negative) Urine Bilirubin (Negative) Ur Leukocyte Esterase (Negative) Urine Mucus (None) /hpf Thrombosis Risk Factor Assmnt - Choose All That Apply Any of the Below Risk Factors Present?: Yes Each Factor Represents 1 point: Age 41-60 years, Obesity (BMI >25), Sepsis (< 1month) Other Risk Factors: No Other congenital or acquired thrombophilia - If yes, enter type in comment: No Thrombosis Risk Factor Assessment Total Risk Factor Score: 3 Thrombosis Risk Factor Assessment Level: Moderate Risk
--- NOTE | 2020-08-26 11:51 | US ---
EXAMINATION TYPE: US pelvic limited DATE OF EXAM: 08/26/2020 COMPARISON: NONE CLINICAL HISTORY: perineum/prostate pain and tenderness. Prostatitis Bladder appears wnl bilateral jets are visualized. Limited scanning performed in this male patient. IMPRESSION: Bladder shows an anechoic appearance. Prostate is not visualized.
[2020-08-26] MEDS ORDERED: LEVOFLOXACIN 750MG-D5W PMX 750 MG in DEXTROSE/WATER 1 150ML.BAG IVPB SCH (12:00)
--- NOTE | 2020-08-26 12:07 | US ---
EXAMINATION TYPE: US scrotum with doppler. Grayscale and color Doppler Duplex imaging performed of t he scrotum. DATE OF EXAM: 08/26/2020 COMPARISON: NONE CLINICAL HISTORY: perineum pain. Prostitis EXAM MEASUREMENTS: TESTICLES: Right Testicle: 5.1 x 2.3 x 2.7 cm Left Testicle: 4.3 x 2.1 x 2.9 cm EPIDIDYMIS HEAD: Right Epididymis: Not well visualized Left Epididymis: Not well visualized Doppler performed to assess for testicular vascularity; bilateral color flow and waveforms are seen. Testicular echotexture is homogenous and symmetric Presence of hydroceles: No Presence of varicoceles: No IMPRESSION: No abnormalities evident within the limitations of the exam
--- NOTE | 2020-08-26 12:22 | US ---
EXAMINATION TYPE: US prostate transrectal DATE OF EXAM: 08/26/2020 COMPARISON: NONE CLINICAL HISTORY: perineum/prostate pain and tenderness. prostatitis This examination was performed using the transrectal probe. EXAM MEASUREMENTS: Gland Size: 6.1 x 3.4 x 5.0 cm Volume: 54 Predicted PSA: 6.5 Actual PSA (if available):Not available IMPRESSION: 1. Prostate size, as described above. This study is not diagnostic for prostate cancer or other lesio ns. Predicted PSA = volume x 0.12 ng/ml Calculated Volume = 0.5236 x L x W x H
[2020-08-26] MEDS: HYDROmorphone 1 MG/ML 1 ML SYRINGE IVP PRN ×2 (12:58→19:26)
[2020-08-26] MEDS ORDERED: LEVOFLOXACIN 500MG-D5W PMX 500 MG in DEXTROSE/WATER 1 100ML.BAG IVPB SCH (13:00)
[2020-08-26] MEDS: HEPARIN SODIUM,PORCINE/PF 5,000 UNIT/0.5 ML SYRINGE SQ SCH ×2 (15:49→23:48)
--- NOTE | 2020-08-26 20:30 | P.GSCN ---
History of Present Illness Consult date: 08/26/20 History of present illness: 54-year-old male admitted to the hospital with prostatitis. He indicated for the past few days she's been having worsening perineal pressure, pain and fevers. Denies any similar symptoms in the past. Denies any voiding issues at baseline. No previous surgeries. Denies any history of gross hematuria UTIs. 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 On presentation he underwent a scrotal ultrasound and a transrectal ultrasound that was within normal limits. No fluid collection visualized on TRUS. A JANETT was performed in the ED which showed evidence of an indurated prostate. He indicated since admission he has not noticed any improvement of pain, but he was afebrile this morning. Review of Systems - Constitutional Reports chills, Reports fever - EENT Ears, nose, mouth and throat: Denies dysphagia - Cardiovascular Denies chest pain, Denies shortness of breath - Respiratory Denies cough, Denies 7 - Gastrointestinal Reports as per HPI - Genitourinary Denies dysuria, Denies flank pain, Denies hematuria, Denies urinary retention - Integumentary Denies rash, Denies unusual bruising - Neurological Denies headaches, Denies syncope 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; spinal fusion L4-L5 Past Anesthesia/Blood Transfusion Reactions: No Reported Reaction Past Psychological History: Anxiety, Depression Smoking Status: Current every day smoker Past Alcohol Use History: Daily Additional Past Alcohol Use History / Comment(s): smokes 3/4 PPD, has smoked for 40 yrs Past Drug Use History: Marijuana Additional Drug Use History / Comment(s): CBD lotion, SMOKES MARIJUANA OCCASIONALLY - Past Family History Mother Family Medical History: Cancer Medications and Allergies Home Medications Medication Instructions Recorded Confirmed Type ALPRAZolam [Xanax] 1 mg PO BID 11/09/19 08/25/20 History Lisinopril-Hctz 20-25 mg 1 tab PO DAILY 11/09/19 08/25/20 History [Zestoretic 20-25] HYDROcodone/APAP 10-325MG [[place] 1 tab PO Q8H 08/25/20 08/25/20 History 10-325] Allergies Allergy/AdvReac Type Severity Reaction Status Date / Time aspirin AdvReac Nausea Verified 08/25/20 12:15 NSAIDS (Non-Steroidal AdvReac Nausea Verified 08/25/20 12:15 Anti-Inflamma Surgical - Exam Vital Signs Temp Pulse Resp BP Pulse Ox 98.2 F 123 H 18 76/55 94 L 08/25/20 10:29 08/25/20 10:29 08/25/20 10:29 08/25/20 10:29 08/25/20 10:29 - General well developed, well nourished, no distress, moderate pain - Eyes PERRL, normal ocular movement - ENT normal nares, normal mucosa - Respiratory normal expansion, normal respiratory effort - Abdomen Abdomen: soft, non tender - Genitourinary No evidence of perineal abscess, or perirectal abscess. normal penis with no external lesions, testicles non-tender - Psychiatric oriented to time, oriented to person, oriented to place, speech is normal Results - Labs 08/25/20 12:16 08/25/20 12:16 Microbiology - Last 24 Hours (Table) 08/25/20 10:43 Blood Culture - Preliminary Blood No Growth after 24 hours 08/25/20 12:16 Blood Culture - Preliminary Blood No Growth after 24 hours Assessment and Plan Assessment: 54-year-old male admitted to the hospital with prostatitis, patient had elevated white blood cell count and lactate on presentation. Transrectal ultrasound was obtained on presentation showed no evidence of prosthetic abscess. UA was negative on presentation Plan: -No acute surgical intervention, no evidence of abscess on exam or TRUS -Continue levofloxacin, will need minimum of 14 days of antibiotics -We'll reassess tomorrow
[2020-08-26] MEDS: ACETAMINOPHEN TAB 325 MG TAB PO PRN (21:14)
[2020-08-27] MEDS: HYDROmorphone 1 MG/ML 1 ML SYRINGE IVP PRN ×7 (01:14→23:04)
[2020-08-27] MEDS: SODIUM CHLORIDE 0.9% 1,000 ML IV SCH ×3 (04:43→19:47)
[2020-08-27] MEDS: ACETAMINOPHEN TAB 325 MG TAB PO PRN (04:58)
[2020-08-27] MEDS: HEPARIN SODIUM,PORCINE/PF 5,000 UNIT/0.5 ML SYRINGE SQ SCH ×3 (07:51→23:08)
[2020-08-27] MEDS: LISINOPRIL-HCTZ 20-25 MG 1 EACH TAB PO SCH (07:51)
[2020-08-27] MEDS: PANTOPRAZOLE 40 MG/10 ML VIAL IVP SCH (07:51)
[2020-08-27] MEDS: HYDROcodone/APAP 10-325MG 1 EACH TAB PO SCH ×2 (09:15→16:26)
[2020-08-27] MEDS: ALPRAZolam 1 MG TAB PO SCH ×2 (09:15→21:50)
[2020-08-27] MEDS: IOPAMIDOL CONTRAST (ORAL USE) VIAL PO PRN ×2 (09:16→10:25)
[2020-08-27] MEDS: metroNIDAZOLE-NS PMX 500 MG in SALINE 1 100ML.BAG IVPB SCH ×3 (10:25→23:09)
[2020-08-27] MEDS ORDERED: TAMSULOSIN 0.4 MG CAP.ER.24H PO SCH (10:30)
--- NOTE | 2020-08-27 10:56 | P.PN ---
Subjective Progress Note Date: 08/27/20 No acute overnight events, imaging from yesterday was reviewed and within normal limits. Indicates no improvement in pain, today there is progression on exam, area of induration and cellulitis along the left buttock. On repeat JANETT Prostate is indurated , but induration on rectal wall along the left side also Objective - Vital Signs Vital signs: Vital Signs Temp 98.8 F 08/27/20 06:10 Pulse 95 08/27/20 05:00 Resp 20 08/27/20 05:00 BP 116/70 08/27/20 05:00 Pulse Ox 95 08/27/20 05:00 Intake & Output 08/26/20 08/27/20 08/27/20 18:59 06:59 18:59 Intake Total 100 Output Total 700 Balance -700 100 Intake: Oral 100 Output: Urine 700 Other: Voiding Method Urinal Urinal Toilet Urinal # Voids 2 2 - Constitutional General appearance: Present: no acute distress - Gastrointestinal General gastrointestinal: Present: soft. Absent: distended, tenderness - Genitourinary Genitourinary Comment(s): Normal circumcised phallus, nontender bilateral testicle, no peritoneal abscesses. JANETT indurated prostate, but induration along the left lateral rectal wall. Induration synovitis along the left buttock - Labs CBC & Chem 7: 08/25/20 12:16 08/25/20 12:16 Labs: Microbiology - Last 24 Hours (Table) 08/25/20 10:43 Blood Culture - Preliminary Blood No Growth after 24 hours 08/25/20 12:16 Blood Culture - Preliminary Blood No Growth after 24 hours Assessment and Plan Assessment: 54-year-old male admitted to the hospital with prostatitis, patient had elevated white blood cell count and lactate on presentation. Transrectal ultrasound was obtained on presentation showed no evidence of prosthetic abscess. UA was negative on presentation. Repeat JANETT today there is evidence of induration along the left lateral rectal wall, new-onset cellulitis and induration along the left buttock. Otherwise his exam is benign Plan: -No acute surgical intervention from urology , no evidence of abscess on exam or TRUS -No improvement on 48 hours of levofloxacin, will switched to gentamicin -We will follow up on the CT Pelvis
[2020-08-27] MEDS ORDERED: GENTAMICIN 80 MG in SODIUM CHLORIDE 0.9% 100 ML IVPB ONE (10:57)
[2020-08-27] MEDS ORDERED: GENTAMICIN PER PHARMACY MISCELLANE SCH (11:00)
[2020-08-27 11:11] LABS: ALT 29 U/L (4-49); AST 32 U/L (17-59); African American GFR (CKD) >90 (>60 ml/min/1.73 sqM); Albumin 3.1 g/dL (3.5-5.0); Albumin/Globulin Ratio 1.2; Alkaline Phosphatase 73 U/L (38-126); Anion Gap 6 mmol/L; Blood Urea Nitrogen 8 mg/dL (9-20); Calcium 8.8 mg/dL (8.4-10.2); Carbon Dioxide 28 mmol/L (22-30); Chloride 96 mmol/L (98-107); Globulin 2.6 g/dL; Glucose 129 mg/dL (74-99); Non-African American GFR(CKD) >90 (>60 ml/min/1.73 sqM); Potassium 3.8 mmol/L (3.5-5.1); Sodium 130 mmol/L (137-145); Total Bilirubin 0.6 mg/dL (0.2-1.3); Total Protein 5.7 g/dL (6.3-8.2)
[2020-08-27 11:19] LABS: HCT 35.5 % (39.0-53.0); HGB 12.3 gm/dL (13.0-17.5); MCH 33.7 pg (25.0-35.0); MCHC 34.8 g/dL (31.0-37.0); MCV 96.9 fL (80.0-100.0); Mean Platelet Volume 7.4; Platelet Count 190 k/uL (150-450); RBC 3.66 m/uL (4.30-5.90); WBC 9.3 k/uL (3.8-10.6)
--- NOTE | 2020-08-27 11:27 | CT ---
CT pelvis with oral and IV contrast material. HISTORY: Perirectal pain. COMPARISON: CT abdomen pelvis the 03/22/2010. TECHNIQUE: Multiple axial images are obtained to the lower abdomen and pelvis following uneventful administratio n of oral and IV contrast material. FINDINGS: The kidneys excrete contrast promptly and symmetrically and there is no solid renal mass or hydroneph rosis. There is no retroperitoneal adenopathy or hemorrhage in the caliber of the abdominal aorta is normal. Within the visualized portion of the mesentery abdomen there is no bowel obstruction or infla mmation. The prostate gland is normal in size. Adjacent to the inferior and left lateral aspect of the prosta te gland in the perianal region there is a ill-defined soft tissue mass with fluid density internally consistent with a periprostatic/perianal abscess. It measures approximately 3.8 cm in transverse dim ension. Distal to this abscess collection there is an additional area of abnormal soft tissue density consistent with inflammation but no discrete abscess formation in this location. The osseous structures and pelvis are intact. There is no evidence of pelvic adenopathy. IMPRESSION: Periprostatic/perianal inflammatory process with 3.8 cm abscess as described above.
[2020-08-27] MEDS ORDERED: GENTAMICIN 500 MG in SODIUM CHLORIDE 0.9% 100 ML IVPB SCH (12:00)
--- NOTE | 2020-08-27 12:35 | P.PN ---
Subjective Progress Note Date: 08/27/20 HISTORY OF PRESENT ILLNESS This is a 54-year-old male patient of Dr. Nuñez with past medical history of hypertension, gastroesophageal reflux disease, degenerative disc dise ase, osteoarthritis, tobacco use and dependence, history of daily alcohol use, marijuana use. Patient had a recent hospitalization October 2019 at which time he was admitted under the care of Dr. Bethea for spondylolysis L5, spondylolisthesis L5-S1, lower extremity radiculopathy, low back pain status post laminectomy and decompression L5-S1. Patient complains of severe pain in the perineum area which he describes as between his testicles and rectum. He states the pain has been going on for about 2 weeks and gradually worsening. He initially thought that it was a boil because he had one on his right thigh a few weeks ago. He states the pain is a throbbing type pain and increases if he sque ezes his rectum. He has had no drainage from the area. He complains of fever for the past 3 days. Patient contacted his PCP and was recommended to come in the hospital for evaluation. No dysuria, hematuria, urinary frequency. Patient came into [facility] emergency center for evaluation found to have fever of 100.7, heart rate 101, blood pressure 131/82, pulse ox 98% on room air. EKG is a sinus rhythm with no acute ST changes. WBC 13.9, hemoglobin 14.9, platelet count 301. Sodium 128, potassium 3.7, chloride 90, CO2 29, BUN 14 and creatinine 1.19. Blood sugar 142. Lactic acid initially 2.8 with repeat of 2.5 and 1.5. Liver function tests were normal. Albumin 4.3. Coronal virus not detected. Urinalysis was dark brown, protein 2+, blood trace, bilirubin 1+, leukoesterase trace. Patient received 2 L of IV fluid, started on Levaquin, consult with urology and admitted to the [facility] floor. We have ordered ultrasound of the pelvis, prostate, scrotum. 08/27: Patient continues to have throbbing and burning type pain in the perineum area and states he is not better from yesterday. All ultrasounds done yesterday did not show any abscess. He has been seen by urology and no surgical intervention is necessary. He has been on Levaquin without improvement and still requiring Dilaudid around the clock. We will add and Flagyl and also obtain CAT scan of the pelvis. Repeat blood work reveals normal WBC of 9.3, hemoglobin 12.3, platelet count 190. Sodium 130, potassium 3.8, chloride 96, CO2 28, BUN 8 and creatinine 0.79. Liver function tests were normal. Blood cultures are no growth at [address] of the pelvis revealed periprosthetic/perianal inflammatory process with 3.8 cm abscess. REVIEW OF SYSTEMS Constitutional: Reports fever, no chills, no night sweats. No weight change. No weakness, fatigue or lethargy. EENT: No headache. No blurred vision or double vision, no loss of vision. No loss of Hearing, no ringing in the ears, no dizziness. No nasal drainage or congestion. No epistaxis. No sore throat. Lungs: No shortness of breath, cough, no sputum production. No wheezing. Cardiovascular: No chest pain, no lower extremity edema. No palpitations. No paroxysmal nocturnal dyspnea. No orthopnea. No lightheadedness or dizziness. No syncopal episodes. Abdominal: No abdominal pain. No nausea, vomiting. No diarrhea. No constipation. No bloody or tarry stools. No loss of appetite. Genitourinary: No dysuria, increased frequency, urgency. No urinary retention. Denies hematuria Musculoskeletal: No myalgias. No muscle weakness, no gait dysfunction, no frequent falls. Denies back pain. No neck pain. Integumentary: No wounds, no lesions. No rash or pruritus. No unusual bruising. No change in hair or nails. Neurologic: No aphasia. No facial droop. No change in mentation. No head injury. No headache. No paralysis. No paresthesia. Psychiatric: No depression. No anxiety. No mood swings. Endocrine: No abnormal blood sugars. No weight change. PHYSICAL EXAMINATION Gen: This is a 54-year-old male. He is sitting up in bed and appears to be in no acute distress. HEENT: Head is atraumatic, normocephalic. Pupils equal, round. Sclerae is anicteric. NECK: Supple. No JVD. No lymphadenopathy. No thyromegaly. LUNGS: Clear to auscultation. No wheezes or rhonchi. No intercostal retractions. HEART: Regular rate and rhythm. No murmur. ABDOMEN: Soft. Bowel sounds are present. No masses. No tenderness. Patient has significant tenderness at the perineum area. No abnormality noted with the testicles. Patient had rectal exam done in the emergency center that revealed tenderness to the prostate. EXTREMITIES: No pedal edema. No calf tenderness. NEUROLOGICAL: Patient is awake, alert and oriented x3. Cranial nerves 2 through 12 are grossly intact. ASSESSMENT AND PLAN 1. Sepsis secondary to periprosthetic/perianal abscess. [facility], continue IV fluids 0.9 normal saline at 130 mL per hour, Levaquin 500 mg daily, vaginal 500 mg every 8 hours added on the consult with urology appreciated. 2. Hypertension. Continue lisinopril hydrochlorothiazide 1 daily with par ameters. 3. GERD and GI prophylaxis. Protonix 40 mg IV push twice daily. 4. Generalized anxiety disorder. Continue Xanax 1 mg twice daily. 5. Suspected AVERY. Recommend OP sleep study. Patient states he has not had a sleep study done. 6. Tobacco use and dependence. Patient declines need for nicotine patch. 7. History of alcohol abuse. Patient has cut back his alcohol intake to rarely. 8. Spondylolysis L5, spondylolisthesis L5-S1, lower extremity radiculopathy, low back pain status post laminectomy and decompression L5-S1. 9. DVT prophylaxis. Heparin 5000 units subcu every 8 hours. DISCHARGE PLAN Home. Impression and plan of care have been directed as dictated by the signing physician. Patience Hernandez nurse practitioner acting as scribe for signing bradford ryan. Objective - Vital Signs Vital signs: Vital Signs Temp 98.8 F 08/27/20 06:10 Pulse 95 08/27/20 05:00 Resp 20 08/27/20 05:00 BP 116/70 08/27/20 05:00 Pulse Ox 95 08/27/20 05:00 Intake & Output 08/26/20 08/27/20 08/27/20 18:59 06:59 18:59 Intake Total 100 Output Total 700 Balance -700 100 Intake: Oral 100 Output: Urine 700 Other: Voiding Method Urinal Urinal Toilet Urinal # Voids 2 2 - Labs CBC & Chem 7: 08/27/20 10:18 08/27/20 10:18 Labs: Microbiology - Last 24 Hours (Table) 08/25/20 10:43 Blood Culture - Preliminary Blood No Growth after 24 hours 08/25/20 12:16 Blood Culture - Preliminary Blood No Growth after 24 hours
--- NOTE | 2020-08-27 17:08 | P.GSCN ---
History of Present Illness Consult date: 08/27/20 History of present illness: 54-year-old male had increasing perirectal pain for the last several weeks. He states that it continued to get worse until he came in the hospital. He has a history of perirectal abscess and transsphincteric an extra sphincteric fistulas which have been operated on before in the past by previous surgeons. He states that they were not completely excise the time due to their involvement of the sphincters. Patient denies any history of inflammatory bowel disease. He denies any drainage at this time. 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; spinal fusion L4-L5 Past Anesthesia/Blood Transfusion Reactions: No Reported Reaction Past Psychological History: Anxiety, Depression Smoking Status: Current every day smoker Past Alcohol Use History: Daily Additional Past Alcohol Use History / Comment(s): smokes 3/4 PPD, has smoked for 40 yrs Past Drug Use History: Marijuana Additional Drug Use History / Comment(s): CBD lotion, SMOKES MARIJUANA OCCASIONALLY - Past Family History Mother Family Medical History: Cancer Medications and Allergies Home Medications Medication Instructions Recorded Confirmed Type ALPRAZolam [Xanax] 1 mg PO BID 11/09/19 08/25/20 History Lisinopril-Hctz 20-25 mg 1 tab PO DAILY 11/09/19 08/25/20 History [Zestoretic 20-25] HYDROcodone/APAP 10-325MG [[place] 1 tab PO Q8H 08/25/20 08/25/20 History 10-325] Allergies Allergy/AdvReac Type Severity Reaction Status Date / Time aspirin AdvReac Nausea Verified 08/25/20 12:15 NSAIDS (Non-Steroidal AdvReac Nausea Verified 08/25/20 12:15 Anti-Inflamma Surgical - Exam Osteopathic Statement: *. No significant issues noted on an osteopathic structural exam other than those noted in the History and Physical/Consult. Vital Signs Temp Pulse Resp BP Pulse Ox 98.2 F 123 H 18 76/55 94 L 08/25/20 10:29 08/25/20 10:29 08/25/20 10:29 08/25/20 10:08/25/20 10:29 - General well developed, well nourished, no distress, obese - Eyes PERRL - Neck trachea midline - Respiratory normal expansion, normal respiratory effort - Cardiovascular Rhythm: regular - Abdomen Abdomen: soft, non tender - Rectum Erythema and tenderness to palpation in the right perineum - Psychiatric oriented to time, oriented to person, oriented to place Results - Labs 08/27/20 10:18 08/27/20 10:18 Abnormal Lab Results - Last 24 Hours (Table) 08/27/20 08/27/20 Range/Units 10:18 10:18 RBC 3.66 L (4.30-5.90) m/uL Hgb 12.3 L (13.0-17.5) gm/dL Hct 35.5 L (39.0-53.0) % Sodium 130 L (137-145) mmol/L Chloride 96 L (98-107) mmol/L BUN 8 L (9-20) mg/dL Glucose 129 H (74-99) mg/dL Total Protein 5.7 L (6.3-8.2) g/dL Albumin 3.1 L (3.5-5.0) g/dL Microbiology - Last 24 Hours (Table) 08/25/20 12:16 Blood Culture - Preliminary Blood No Growth after 48 hours 08/25/20 10:43 Blood Culture - Preliminary Blood No Growth after 48 hours Diabetes panel 08/27/20 Range/Units 10:18 Sodium 130 L (137-145) mmol/L Potassium 3.8 (3.5-5.1) mmol/L Chloride 96 L (98-107) mmol/L Carbon Dioxide 28 (22-30) mmol/L BUN 8 L (9-20) mg/dL Creatinine 0.79 (0.66-1.25) mg/dL Glucose 129 H (74-99) mg/dL Calcium 8.8 (8.4-10.2) mg/dL AST 32 (17-59) U/L ALT 29 (4-49) U/L Alkaline Phosphatase 73 (38-126) U/L Total Protein 5.7 L (6.3-8.2) g/dL Albumin 3.1 L (3.5-5.0) g/dL Calcium panel 08/27/20 Range/Units 10:18 Calcium 8.8 (8.4-10.2) mg/dL Albumin 3.1 L (3.5-5.0) g/dL Pituitary panel 08/27/20 Range/Units 10:18 Sodium 130 L (137-145) mmol/L Potassium 3.8 (3.5-5.1) mmol/L Chloride 96 L (98-107) mmol/L Carbon Dioxide 28 (22-30) mmol/L BUN 8 L (9-20) mg/dL Creatinine 0.79 (0.66-1.25) mg/dL Glucose 129 H (74-99) mg/dL Calcium 8.8 (8.4-10.2) mg/dL Adrenal panel 08/27/20 Range/Units 10:18 Sodium 130 L (137-145) mmol/L Potassium 3.8 (3.5-5.1) mmol/L Chloride 96 L (98-107) mmol/L Carbon Dioxide 28 (22-30) mmol/L BUN 8 L (9-20) mg/dL Creatinine 0.79 (0.66-1.25) mg/dL Glucose 129 H (74-99) mg/dL Calcium 8.8 (8.4-10.2) mg/dL Total Bilirubin 0.6 (0.2-1.3) mg/dL AST 32 (17-59) U/L ALT 29 (4-49) U/L Alkaline Phosphatase 73 (38-126) U/L Total Protein 5.7 L (6.3-8.2) g/dL Albumin 3.1 L (3.5-5.0) g/dL Assessment and Plan Assessment: Deep perirectal/perineal abscess Plan: Due to the location of this deep abscess patient would likely best be served with interventional radiology and colorectal consultation likely a tertiary care facility. Patient has a complex perirectal surgical history with multiple fistula in the past. He likely needs evaluation for an extra sphincteric fistula by colorectal surgery. No plans for acute surgical intervention at this time.
[2020-08-27] MEDS ORDERED: PANTOPRAZOLE 40 MG TABLET PO SCH (17:30)
[2020-08-27 20:53] VITALS: BP 135/85; PULSE 94; RESP 16; TEMP 99.3
[2020-08-28] MEDS: HYDROcodone/APAP 10-325MG 1 EACH TAB PO SCH (00:28)
--- NOTE | 2020-08-28 09:58 | P.TRANS ---
Providers Date of admission: 08/25/20 15:11 Expected date of discharge: 08/27/20 Attending physician: Erin Matthew MD Consults: 08/25/20 15:13 Consult Physician Urgent Consulting Provider: Dev Stearns Consult Reason/Comments: Prostatitis Do you want consulting provider notified?: Yes 08/27/20 16:53 Consult Physician Urgent Consulting Provider: Eleazar Wilkerson Consult Reason/Comments: adry-anal abscess Do you want consulting provider notified?: Already Contacted Primary care physician: Isaac Nuñez [facility] Course: HISTORY OF PRESENT ILLNESS This is a 54-year-old male patient of Dr. Nuñez with past medical history of hypertension, gastroesophageal reflux disease, degenerative disc disease, osteoarthritis, tobacco use and dependence, history of daily alcohol use, marijuana use. Patient had a recent hospitalization October 2019 at which time he was admitted under the care of Dr. Bethea for spondylolysis L5, spondylolisthesis L5-S1, lower extremity radiculopathy, low back pain status post laminectomy and decompression L5-S1. Patient complains of severe pain in the perineum area which he describes as between his testicles and rectum. He states the pain has been going on for about 2 weeks and gradually worsening. He initially thought that it was a boil because he had one on his right thigh a few weeks ago. He states the pain is a throbbing type pain and increases if he squeezes his rectum. He has had no drainage from the area. He complains of fever for the past 3 days. Patient contacted his PCP and was recommended to come in the hospital for evaluation. No dysuria, hematuria, urinary frequency. Patient came into [facility] emergency center for evaluation found to have fever of 100.7, heart rate 101, blood pressure 131/82, pulse ox 98% on room air. EKG is a sinus rhythm with no acute ST changes. WBC 13.9, hemoglobin 14.9, platelet count 301. Sodium 128, potassium 3.7, chloride 90, CO2 29, BUN 14 and creatinine 1.19. Blood sugar 142. Lactic acid initially 2.8 with repeat of 2.5 and 1.5. Liver function tests were normal. Albumin 4.3. Coronal virus not detected. Urinalysis was dark brown, protein 2+, blood trace, bilirubin 1+, leukoesterase trace. Patient received 2 L of IV fluid, started on Levaquin, consult with urology and admitted to the [facility] floor. We have ordered ultrasound of the pelvis, prostate, scrotum. 08/27: Patient continues to have throbbing and burning type pain in the perineum area and states he is not better from yesterday. All ultrasounds done yesterday did not show any abscess. He has been seen by urology and no surgical intervention is necessary. He has been on Levaquin without improvement and still requiring Dilaudid around the clock. We will add and Flagyl and also obtain CAT scan of the pelvis. Repeat blood work reveals normal WBC of 9.3, hemoglobin 12.3, platelet count 190. Sodium 130, potassium 3.8, chloride 96, CO2 28, BUN 8 and creatinine 0.79. Liver function tests were normal. Blood cultures are no growth at [address] of the pelvis revealed periprosthetic/perianal inflammatory process with 3.8 cm abscess. A consult was admitted for Dr. Wilkerson and he evaluated the patient and recommended transfer to tertiary care facility. Arrangements were made for the patient to transfer to [facility]. REVIEW OF SYSTEMS Constitutional: Reports fever, no chills, no night sweats. No weight change. No weakness, fatigue or lethargy. EENT: No headache. No blurred vision or double vision, no loss of vision. No loss of Hearing, no ringing in the ears, no dizziness. No nasal drainage or congestion. No epistaxis. No sore throat. Lungs: No shortness of breath, cough, no sputum production. No wheezing. Cardiovascular: No chest pain, no lower extremity edema. No palpitations. No paroxysmal nocturnal dyspnea. No orthopnea. No lightheadedness or dizziness. No syncopal episodes. Abdominal: No abdominal pain. No nausea, vomiting. No diarrhea. No constipation. No bloody or tarry stools. No loss of appetite. Genitourinary: No dysuria, increased frequency, urgency. No urinary retention. Denies hematuria Musculoskeletal: No myalgias. No muscle weakness, no gait dysfunction, no frequent falls. Denies back pain. No neck pain. Integumentary: No wounds, no lesions. No rash or pruritus. No unusual bruising. No change in hair or nails. Neurologic: No aphasia. No facial droop. No change in mentation. No head injury. No headache. No paralysis. No paresthesia. Psychiatric: No depression. No anxiety. No mood swings. Endocrine: No abnormal blood sugars. No weight change. PHYSICAL EXAMINATION Gen: This is a 54-year-old male. He is sitting up in bed and appears to be in no acute distress. HEENT: Head is atraumatic, normocephalic. Pupils equal, round. Sclerae is anicteric. NECK: Supple. No JVD. No lymphadenopathy. No thyromegaly. LUNGS: Clear to auscultation. No wheezes or rhonchi. No intercostal retractions. HEART: Regular rate and rhythm. No murmur. ABDOMEN: Soft. Bowel sounds are present. No masses. No tenderness. Patient has significant tenderness at the perineum area. No abnormality noted with the testicles. Patient had rectal exam done in the emergency center that revealed tenderness to the prostate. EXTREMITIES: No pedal edema. No calf tenderness. NEUROLOGICAL: Patient is awake, alert and oriented x3. Cranial nerves 2 through 12 are grossly intact. ASSESSMENT AND PLAN 1. Sepsis secondary to periprosthetic/perianal abscess. Patient admitted to the [facility] floor, continue IV fluids 0.9 normal saline at 130 mL per hour, Levaquin 500 mg daily, Flagyl 500 mg every 8 hours added on the consult with urology and general surgery appreciated. 2. Hypertension. Continue lisinopril hydrochlorothiazide 1 daily with parameters. 3. GERD and GI prophylaxis. Protonix 40 mg IV push twice daily. 4. Generalized anxiety disorder. Continue Xanax 1 mg twice daily. 5. Suspected AVERY. Recommend OP sleep study. Patient states he has not had a sleep study done. 6. Tobacco use and dependence. Patient declines need for nicotine patch. 7. History of alcohol abuse. Patient has cut back his alcohol intake to rarely. 8. Spondylolysis L5, spondylolisthesis L5-S1, lower extremity radiculopathy, low back pain status post laminectomy and decompression L5-S1. 9. DVT prophylaxis. Heparin 5000 units subcu every 8 hours. DISCHARGE PLAN Transfer to [facility] Impression and plan of care have been directed as dictated by the signing physician. Patience Hernandez nurse practitioner acting as scribe for signing physician. Patient Condition at Discharge: Stable Plan - Transfer Summary Follow up Appointment(s)/Referral(s): Isaac Nuñez MD [Primary Care Provider] - 1-2 days Discharge Disposition: [facility]
== END 2020-08-28 00:55 | DRG 872 ==
LOC: EC 10:20 → 5NMEDONC 15:11
PROVIDERS: ADMIT Internal Medicine; ATTEND Internal Medicine
DX: A41.9 Sepsis, unspecified organism (principal); K61.0 Anal abscess; L02.215 Cutaneous abscess of perineum; K21.9 Gastro-esophageal reflux disease without esophagitis; I10 Essential (primary) hypertension; F17.200 Nicotine dependence, unspecified, uncomplicated; N41.9 Inflammatory disease of prostate, unspecified; Z20.822 Contact with and (suspected) exposure to COVID-19; F41.1 Generalized anxiety disorder; M43.17 Spondylolisthesis, lumbosacral region; Z82.0 Family history of epilepsy and other diseases of the nervous system; Z98.1 Arthrodesis status; F32.9 Major depressive disorder, single episode, unspecified
CPT/HCPCS: 36415; 51798; 72193; 76857; 76870; 76872; 80053; 80170; 81001; 83605; 85025; 85027; 85610; 85730; 87040; 87635; 93005; 93975; 96365; 96366; 96375; 96376; 99285

== ENCOUNTER 2024-03-26 15:27 | Inpatient (IN) | payer MEDICARE, OTHER ==
--- NOTE | 2024-03-26 16:03 | ED ---
Skin/Abscess/FB HPI - General Source: patient, RN notes reviewed Mode of arrival: wheelchair Limitations: no limitations <Kenisha Izaguirre - Last Filed: 03/26/24 16:02> <Natalia Stallworth - Last Filed: 03/27/24 22:03> - General Chief complaint: Skin/Abscess/Foreign Body Stated complaint: abd pain Time Seen by Provider: 03/26/24 15:40 - History of Present Illness Initial comments: Hilario notepadmini is a 58-year-old male with history of Juan anal abscess presenting to the emergency department for complaint of perirectal pain that started 5 days ago and has been worsening. Denies drainage from the site however states this feels similar as when he had surgery approximately 2 years ago with [facility] physician. He denies fevers, chills, nausea, vomiting. (Kenisha Izaguirre) 58-year-old male presenting with chief complaint of perirectal pain. Patient states pain started 5 days ago. Patient has history of perianal abscess. States that it feels similar to when he needed surgery 2 years ago, this was done at [facility]. He denies any fever, chills, nausea, vomiting. He is having some lower abdominal discomfort. No diarrhea, bleeding, or discharge. (Natalia Stallworth) - Related Data Home Medications Medication Instructions Recorded Confirmed ALPRAZolam [Xanax] 1 mg PO BID PRN 11/09/19 03/27/24 Lisinopril-Hctz 20-25 mg 1 tab PO DAILY 11/09/19 03/27/24 [Zestoretic 20-25] HYDROcodone/APAP 10-325MG [[place] 1 tab PO Q6H PRN MDD 4 TABLETS 08/25/20 03/27/24 10-325] DAILY Atorvastatin [Lipitor] 10 mg PO DAILY 03/27/24 03/27/24 Cholecalciferol [Vitamin D3 (125 125 mcg PO DAILY 03/27/24 03/27/24 Mcg = 5000 Iu)] Slow-Mag 71.5mg 71.5 mg PO DAILY 03/27/24 03/27/24 Allergies Allergy/AdvReac Type Severity Reaction Status Date / Time aspirin AdvReac Nausea Verified 03/27/24 07:50 NSAIDS (Non-Steroidal AdvReac Nausea Verified 03/27/24 07:50 Anti-Inflamma Review of Systems ROS Other: All systems not noted in ROS Statement are negative. <Kenisha Izaguirre - Last Filed: 03/26/24 16:02> ROS Other: All systems not noted in ROS Statement are negative. <Natalia Stallworth - Last Filed: 03/27/24 22:03> ROS Statement: Those systems with pertinent positive or pertinent negative responses have been documented in the HPI. 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; spinal fusion L4-L5 Past Anesthesia/Blood Transfusion Reactions: No Reported Reaction Past Psychological History: Anxiety, Depression Smoking Status: Current every day smoker Past Alcohol Use History: Daily Past Drug Use History: Marijuana - Past Family History Mother Family Medical History: Cancer <Kenisha Izaguirre - Last Filed: 03/26/24 16:02> General Exam Limitations: no limitations <Kenisha Izaguirre - Last Filed: 03/26/24 16:02> Limitations: no limitations General appearance: alert, in no apparent distress Head exam: Present: atraumatic, normocephalic, normal inspection Eye exam: Present: normal appearance, EOMI Neck exam: Present: normal inspection. Absent: meningismus Respiratory exam: Present: normal lung sounds bilaterally. Absent: respiratory distress, wheezes, rales, rhonchi, stridor Cardiovascular Exam: Present: regular rate, normal rhythm, normal heart sounds. Absent: systolic murmur, diastolic murmur, rubs, gallop, clicks Rectal exam: Present: other (Perirectal erythema) Neurological exam: Present: alert, oriented X3 Psychiatric exam: Present: normal affect, normal mood Skin exam: Present: warm, dry <Natalia Stallworth - Last Filed: 03/27/24 22:03> - General Exam Comments Initial Comments: Visual Physical Exam Vital signs reviewed General: Well-appearing, nontoxic, no acute distress. Head: Normocephalic, atraumatic Eyes: PERRLA, EOMI ENT: Airway patent Chest: Nonlabored breathing Skin: No visual rash, normal skin tone Neuro: Alert and oriented 3 Musculoskeletal: No gross abnormalities (Kenisha Izaguirre) Course Vital Signs 03/26/24 03/26/24 03/27/24 15:44 23:32 02:35 Temperature 98.1 F 98.7 F Pulse Rate 121 H 97 106 H Respiratory 16 16 18 Rate Blood Pressure 154/84 110/67 127/65 O2 Sat by Pulse 95 93 L 96 Oximetry 03/27/24 09:11 Temperature 98.6 F Pulse Rate 104 H Respiratory 18 Rate Blood Pressure 120/79 O2 Sat by Pulse 96 Oximetry Medical Decision Making <Kenisha Izaguirre - Last Filed: 03/26/24 16:02> - Lab Data Result diagrams: 03/27/24 04:09 03/27/24 04:09 <Natalia Stallworth - Last Filed: 03/27/24 22:03> - Medical Decision Making I completed the quick note portion of this chart signed Kenisha Izaguirre PA-C (Kenisha Izaguirre) Was pt. sent in by a medical professional or institution ([employer], FAST [employer]OD SUPERVISOR, urgent care, hospital, or jail...) When possible be specific @ -No Did you speak to anyone other than the patient for history (EMS, parent, family, police, friend...)? What history was obtained from this source @ -No Did you review nursing and triage notes (agree or disagree)? Why? @ -I reviewed and agree with nursing and triage notes Were old charts reviewed (outside hosp., previous admission, EMS record, old EKG, old radiological studies, urgent care reports/EKG's, jail records)? Report findings @ -No old charts were reviewed Differential Diagnosis (chest pain, altered mental status, abdominal pain women, abdominal pain men, vaginal bleeding, weakness, fever, dyspnea, syncope, headache, dizziness, GI bleed, back pain, seizure, CVA, palpatations, mental health, musculoskeletal)? @ -Differential includes perianal abscess, fistula, this is not an all-i nclusive list EKG interpreted by me (3pts min.). @ -As above X-rays interpreted by me (1pt min.). @ -None done CT interpreted by me (1pt min.). @ -CT shows left perianal abscess extending from 12-2 o'clock. Pedunculated lesion felt to be present in the second portion duodenum on the medial aspect measuring up to 15 mm. Hepatic steatosis U/S interpreted by me (1pt. min.). @ -None done What testing was considered but not performed or refused? (CT, X-rays, U/S, labs)? Why? @ -None What meds were considered but not given or refused? Why? @ -None Did you discuss the management of the patient with other professionals (professionals i.e. DrFabian, PA, FAST FOOD SUPERVISOR, lab, RT, psych nurse, social sciences lecturer, bomb squad officer, teacher, commanding officer homicide squad, briefcase sewer)? Give summary @ -Spoke with Dr. Hartman who accepts admission Was smoking cessation discussed for >3mins.? @ -No Was critical care preformed (if so, how long)? @ -No Were there social determinants of health that impacted care today? How? (Homelessness, low income, unemployed, alcoholism, drug addiction, transportation, low edu. Level, literacy, decrease access to med. care, senior care, rehab)? @ -No Was there de-escalation of care discussed even if they declined (Discuss DNR or withdrawal of care, Hospice)? DNR status @ -No What co-morbidities impacted this encounter? (DM, HTN, Smoking, COPD, CAD, Cancer, CVA, ARF, Chemo, Hep., AIDS, mental health diagnosis, sleep apnea, morbid obesity)? @ -None Was patient admitted / discharged? Hospital course, mention meds given and route, prescriptions, significant lab abnormalities, going to OR and other per tinent info. @ -58-year-old male presenting with a chief complaint of perirectal pain. History of perianal abscess. CT reveals perianal abscess. Patient treated with Unasyn. Patient will be admitted to general surgery. He is agreeable with this plan. I discussed this case with my attending Dr. Mccann Undiagnosed new problem with uncertain prognosis? @ -No Drug Therapy requiring intensive monitoring for toxicity (Heparin, Nitro, Insulin, Cardizem)? @ -No Were any procedures done? @ -No Diagnosis/symptom? @ -Perianal abscess Acute, or Chronic, or Acute on Chronic? @ -Acute Uncomplicated (without systemic symptoms) or Complicated (systemic symptoms)? @ -Complicated Side effects of treatment? @ -No Exacerbation, Progression, or Severe Exacerbation? @ -No Poses a threat to life or bodily function? How? (Chest pain, USA, AL, pneumonia, PE, COPD, DKA, ARF, appy, cholecystitis, CVA, Diverticulitis, Homicidal, Suicidal, threat to staff... and all critical care pts) @ -Yes (Natalia Stallworth) - Lab Data Lab Results 03/26/24 03/26/24 03/26/24 Range/Units 17:55 17:55 17:55 WBC 15.4 H (3.8-10.6) k/uL RBC 5.31 (4.30-5.90) m/uL Hgb 16.2 (13.0-17.5) gm/dL Hct 48.8 (39.0-53.0) % MCV 91.8 (80.0-100.0) fL MCH 30.4 (25.0-35.0) pg MCHC 33.1 (31.0-37.0) g/dL RDW 12.4 (11.5-15.5) % Plt Count 327 (150-450) k/uL MPV 6.6 Neutrophils % 85 % Lymphocytes % 7 % Monocytes % 6 % Eosinophils % 1 % Basophils % 0 % Neutrophils # 13.1 H (1.3-7.7) k/uL Lymphocytes # 1.1 (1.0-4.8) k/uL Monocytes # 0.9 (0-1.0) k/uL Eosinophils # 0.1 (0-0.7) k/uL Basophils # 0.0 (0-0.2) k/uL Sodium 130 L (137-145) mmol/L Potassium 4.8 (3.5-5.1) mmol/L Chloride 94 L (98-107) mmol/L Carbon Dioxide 25 (22-30) mmol/L Anion Gap 11 mmol/L BUN 12 (9-20) mg/dL Creatinine 0.88 (0.66-1.25) mg/dL Est GFR (CKD-EPI)AfAm >90 (>60 ml/min/1.73 sqM) Est GFR (CKD-EPI)NonAf >90 (>60 ml/min/1.73 sqM) Glucose 147 H (74-99) mg/dL Plasma Lactic Acid [place] 1.8 (0.7-2.0) mmol/L Calcium 9.7 (8.4-10.2) mg/dL Total Bilirubin 0.9 (0.2-1.3) mg/dL AST 21 (17-59) U/L ALT 18 (4-49) U/L Alkaline Phosphatase 94 (38-126) U/L C-Reactive Protein 5.0 H (<1.0) mg/dL Total Protein 7.8 (6.3-8.2) g/dL Albumin 4.4 (3.5-5.0) g/dL Disposition <Kenisha Izaguirre - Last Filed: 03/26/24 16:02> Time of Disposition: 20:57 <Natalia Stallworth - Last Filed: 03/27/24 22:03> Clinical Impression: Perianal abscess Disposition: ADMITTED IP TO THIS HOSP Condition: Fair
[2024-03-26 18:01] LABS: Basophils % (A) 0 %; Eosinophils # (A) 0.1 k/uL (0-0.7); Eosinophils % (A) 1 %; HCT 48.8 % (39.0-53.0); HGB 16.2 gm/dL (13.0-17.5); Lymphocytes # (A) 1.1 k/uL (1.0-4.8); Lymphocytes % (A) 7 %; MCH 30.4 pg (25.0-35.0); MCHC 33.1 g/dL (31.0-37.0); MCV 91.8 fL (80.0-100.0); Mean Platelet Volume 6.6; Monocytes # (A) 0.9 k/uL (0-1.0); Monocytes % (A) 6 %; Neutrophils # (A) 13.1 k/uL (1.3-7.7); Neutrophils % (A) 85 %; Platelet Count 327 k/uL (150-450); RBC 5.31 m/uL (4.30-5.90); RDW 12.4 % (11.5-15.5); WBC 15.4 k/uL (3.8-10.6)
[2024-03-26 18:27] LABS: ALT 18 U/L (4-49); AST 21 U/L (17-59); African American GFR (CKD) >90 (>60 ml/min/1.73 sqM); Albumin 4.4 g/dL (3.5-5.0); Alkaline Phosphatase 94 U/L (38-126); Anion Gap 11 mmol/L; Blood Urea Nitrogen 12 mg/dL (9-20); Calcium 9.7 mg/dL (8.4-10.2); Carbon Dioxide 25 mmol/L (22-30); Chloride 94 mmol/L (98-107); Glucose 147 mg/dL (74-99); Non-African American GFR(CKD) >90 (>60 ml/min/1.73 sqM); Potassium 4.8 mmol/L (3.5-5.1); Sodium 130 mmol/L (137-145); Total Bilirubin 0.9 mg/dL (0.2-1.3); Total Protein 7.8 g/dL (6.3-8.2)
[2024-03-26] MEDS: HYDROmorphone 1 MG/ML 1 ML SYRINGE IVP STA (18:52)
[2024-03-26] MEDS: ONDANSETRON 4 MG/2 ML VIAL IVP STA (18:53)
--- NOTE | 2024-03-26 19:43 | CT ---
EXAMINATION TYPE: CT abdomen pelvis w con DATE OF EXAM: 03/26/2024 7:18 PM COMPARISON: CT abdomen pelvis most recent from 03/22/2010, 08/27/2020. CLINICAL INDICATION: Male, 58 years old with history of perianal abscess; Perianal abscess. TECHNIQUE: Axial CT abdomen pelvis w con;Sagittal and coronal reformats were created on a separate w orkstation. Contrast used:100 ml mL of Isovue 300 with IV Contrast, (none if empty) Oral contrast used: without Oral Contrast (none if empty) CT DLP: 2636.7 mGycm, Automated exposure control for dose reduction was used. FINDINGS: LOWER CHEST: Lipomatous hypertrophy changes of the interatrial septum.e ABDOMEN LIVER: Diffusely hypoattenuating parenchyma. GALLBLADDER AND BILE DUCTS: Unremarkable. PANCREAS: Unremarkable. SPLEEN: Unremarkable. ADRENAL GLANDS: Unremarkable. KIDNEYS AND URETERS: No evidence of hydronephrosis or renal calculus. The ureters are unremarkable. PELVIS BLADDER: No evidence for wall thickening or mass given limitations of exam. REPRODUCTIVE: Prostate is enlarged in size measuring 5.0 cm in transverse dimension. ABDOMEN & PELVIS STOMACH AND BOWEL: Second portion duodenal soft tissue lesion with enhancement which is thought to no t definitively seen on prior in 2009. Additionally frontal diverticula may be present.. There is some mucosal enhancement in this region measuring up to 15 mm. This is felt to be separate from the ampul la series 202 image 63. No Evidence of bowel obstruction. PERITONEUM/RETROPERITONEUM: No evidence of pneumoperitoneum or free fluid. VASCULATURE: No evidence of aortic aneurysm. MUSCULOSKELETAL: No acute osseous abnormalities LYMPH NODES: No gross evidence for lymphadenopathy. SOFT TISSUE/ABDOMINAL WALL: Small fat-containing umbilical hernia. Fatty changes in the left inguinal canal with small left fat-containing inguinal hernia. Left perineum/perianal organizing fluid collection just left of midline measuring 43 x 25 x 40 mm thi s extends from 12-2 o'clock around the anus. IMPRESSION: 1. Left perianal abscess extending from 12 to 2 o'clock. 2. Pedunculated lesion thought to be present in the second portion duodenum on the medial aspect terence suring up to 15 mm. Consider further evaluation. 3. Hepatic steatosis. [facility], , 03/26/2024 7:40 PM
[2024-03-26] MEDS ORDERED: NALOXONE 0.4 MG/ML 1 ML VIAL IV PRN (20:56)
[2024-03-26] MEDS: SODIUM CHLORIDE 0.9% 1,000 ML IV SCH (21:04)
[2024-03-26] MEDS: AMPICILLIN-SULBACTAM 3 GM in SODIUM CHLORIDE 0.9% 100 ML IVPB STA (21:05)
[2024-03-26] MEDS: ALPRAZolam 1 MG TAB PO PRN (23:08)
--- NOTE | 2024-03-27 00:16 | P.GSHP ---
History of Present Illness H&P Date: 03/26/24 58-year-old male with history of perianal abscess presenting to the [facility] emergency department for complaint of perirectal pain that started 5 days ago and has been worsening. He denies drainage from the site however states this feels similar as when he had surgery approximately 2 years ago with [facility] physician. He denies fevers, chills, nausea, vomiting. He had a CT-AP which showed a perianal abscess. He is noted to have a leukocytosis. Review of Systems ROS Other: All systems not noted in ROS Statement are negative. 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; spinal fusion L4-L5 Past Anesthesia/Blood Transfusion Reactions: No Reported Reaction Past Psychological History: Anxiety, Depression Smoking Status: Current every day smoker Past Alcohol Use History: Daily Past Drug Use History: Marijuana - Past Family History Mother Family Medical History: Cancer General Exam Limitations: no limitations - General Exam Comments Initial Comments: Visual Physical Exam Vital signs reviewed General: Well-appearing, nontoxic, no acute distress. Head: Normocephalic, atraumatic Eyes: PERRLA, EOMI ENT: Airway patent Chest: Nonlabored breathing Skin: No visual rash, normal skin tone Neuro: Alert and oriented 3 Musculoskeletal: No gross abnormalities 58 year old male with perianal abscess -CT reviewed -Will plan for Incision and Drainage in OR 03/27/24. Discussed with patient and patient agreeable -Unasyn -NPO -IV fluids -Pain Control -Medicine Recs Kennedy Hartman [facility] [phone] 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; spinal fusion L4-L5 Past Anesthesia/Blood Transfusion Reactions: No Reported Reaction Past Psychological History: Anxiety, Depression Smoking Status: Current every day smoker Past Alcohol Use History: Daily Past Drug Use History: Marijuana - Past Family History Mother Family Medical History: Cancer Medications and Allergies Home Medications Medication Instructions Recorded Confirmed Type ALPRAZolam [Xanax] 1 mg PO BID 11/09/19 08/25/20 History Lisinopril-Hctz 20-25 mg 1 tab PO DAILY 11/09/19 08/25/20 History [Zestoretic 20-25] HYDROcodone/APAP 10-325MG [[place] 1 tab PO Q8H 08/25/20 08/25/20 History 10-325] Allergies Allergy/AdvReac Type Severity Reaction Status Date / Time aspirin AdvReac Nausea Verified 03/26/24 15:43 NSAIDS (Non-Steroidal AdvReac Nausea Verified 03/26/24 15:43 Anti-Inflamma Surgical - Exam Vital Signs Temp Pulse Resp BP Pulse Ox 98.1 F 121 H 16 154/84 95 03/26/24 15:44 03/26/24 15:44 03/26/24 15:44 03/26/24 15:44 03/26/24 15:44 Results - Labs 03/26/24 17:55 03/26/24 17:55 Abnormal Lab Results - Last 24 Hours (Table) 03/26/24 03/26/24 Range/Units 17:55 17:55 WBC 15.4 H (3.8-10.6) k/uL Neutrophils # 13.1 H (1.3-7.7) k/uL Sodium 130 L (137-145) mmol/L Chloride 94 L (98-107) mmol/L Glucose 147 H (74-99) mg/dL C-Reactive Protein 5.0 H (<1.0) mg/dL Diabetes panel 03/26/24 Range/Units 17:55 Sodium 130 L (137-145) mmol/L Potassium 4.8 (3.5-5.1) mmol/L Chloride 94 L (98-107) mmol/L Carbon Dioxide 25 (22-30) mmol/L BUN 12 (9-20) mg/dL Creatinine 0.88 (0.66-1.25) mg/dL Glucose 147 H (74-99) mg/dL Calcium 9.7 (8.4-10.2) mg/dL AST 21 (17-59) U/L ALT 18 (4-49) U/L Alkaline Phosphatase 94 (38-126) U/L Total Protein 7.8 (6.3-8.2) g/dL Albumin 4.4 (3.5-5.0) g/dL Calcium panel 03/26/24 Range/Units 17:55 Calcium 9.7 (8.4-10.2) mg/dL Albumin 4.4 (3.5-5.0) g/dL Pituitary panel 03/26/24 Range/Units 17:55 Sodium 130 L (137-145) mmol/L Potassium 4.8 (3.5-5.1) mmol/L Chloride 94 L (98-107) mmol/L Carbon Dioxide 25 (22-30) mmol/L BUN 12 (9-20) mg/dL Creatinine 0.88 (0.66-1.25) mg/dL Glucose 147 H (74-99) mg/dL Calcium 9.7 (8.4-10.2) mg/dL Adrenal panel 03/26/24 Range/Units 17:55 Sodium 130 L (137-145) mmol/L Potassium 4.8 (3.5-5.1) mmol/L Chloride 94 L (98-107) mmol/L Carbon Dioxide 25 (22-30) mmol/L BUN 12 (9-20) mg/dL Creatinine 0.88 (0.66-1.25) mg/dL Glucose 147 H (74-99) mg/dL Calcium 9.7 (8.4-10.2) mg/dL Total Bilirubin 0.9 (0.2-1.3) mg/dL AST 21 (17-59) U/L ALT 18 (4-49) U/L Alkaline Phosphatase 94 (38-126) U/L Total Protein 7.8 (6.3-8.2) g/dL Albumin 4.4 (3.5-5.0) g/dL
[2024-03-27 08:58] LABS: BUN/Creat Ratio 11.22 Ratio (12.00-20.00); Blood Urea Nitrogen 10.1 mg/dL (9.0-27.0); Calcium 8.9 mg/dL (8.7-10.3); Carbon Dioxide 28.1 mmol/L (21.6-31.8); Chloride 96 mmol/L (96-109); Glucose 123 mg/dL (70-110); Potassium 4.6 mmol/L (3.5-5.5); Sodium 134 mmol/L (135-145)
[2024-03-27 09:03] LABS: Basophils # (A) 0.05 X 10*3/uL (0.00-0.10); Basophils % (A) 0.4 %; Eosinophils # (A) 0.15 X 10*3/uL (0.04-0.35); Eosinophils % (A) 1.1 %; HCT 45.6 % (39.6-50.0); HGB 14.5 g/dL (13.0-17.0); Lymphocytes # (A) 1.33 X 10*3/uL (0.90-5.00); Lymphocytes % (A) 9.8 %; MCH 29.6 pg (27.0-32.0); MCHC 31.8 g/dL (32.0-37.0); MCV 93.1 FL (80.0-97.0); Mean Platelet Volume 8.9 FL (9.5-12.2); Monocytes # (A) 1.12 X 10*3/uL (0.20-1.00); Monocytes % (A) 8.3 %; NRBC Per 100 WBC 0 X 10*3/uL (0.00-0.01); Neutrophils % (A) 79.8 %; Platelet Count 252 X 10*3/uL (140-440); RDW 12.5 % (11.5-14.5); WBC 13.53 X 10*3/uL (4.50-10.00)
[2024-03-27] MEDS: LISINOPRIL-HCTZ 20-25 MG 1 EACH TAB PO SCH (10:16)
--- NOTE | 2024-03-27 10:26 | P.CONS ---
History of Present Illness - Reason for Consult Consult date: 03/27/24 Medical management - Chief Complaint Perianal abscess - History of Present Illness Patient is a 58-year-old male with history of perianal abscess, GERD, hypertension, hyperlipidemia presented to the emergency department for perirectal pain that started about 5 days ago. Reported a 10 out of 10 pain during initial presentation to the ED. patient has had a frequent history of perianal abscess in the past. Patient is being seen in the surgical unit for consultation for medical management and surgical clearance. He was seen at bedside. Currently endorses an 8 out of 10 sharp stabbing pain in the left perianal region. Denies drainage at this time. Denies fever, chills, nausea/vomiting, chest pain, shortness of breath, belly pain, dysuria, lower extremity numbness or tingling, diarrhea/constipation. Patient is scheduled for an incision and drainage on 03/27/2024. ED documentation reviewed. In the ED patient was treated with Dilaudid 1 mg IV x 1, Zofran 4 mg IV x 1, Unasyn 3 g IV x 1 Vitals on admission temperature 98.7, pulse rate 106, respiratory rate 18, blood pressure 127/65, O2 sat 96% on room air CT of abdomen and pelvis shows left perianal abscess extending from 12-2 o'clock. Pedunculated lesion thought to be present in the second portion duodenum on the medial aspect measuring up to 15 mm, consider further evaluation. Hepatic steatosis. Labs on admission show WBC 15.4, hemoglobin 16.2, hematocrit 48.8, platelet 327, neutrophils 13.1, sodium 130, potassium 4.8, chloride 94, carbon dioxide 25, BUN 12, creatinine 0.88, glucose 147, lactic acid 1.8, CRP 5.0 Review of systems: Pertinent positives and negatives as discussed in HPI, a complete review of systems was performed and all other systems are negative. PMH: History of perianal abscess, GERD, hypertension, hyperlipidemia PSH: Back surgery, orthopedic surgery, 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 FMH: No pertinent family history Allergies: Aspirin, NSAIDs Social history: Tobacco: Every day smoker Alcohol: Daily alcohol use Recreational drugs: Marijuana Travel: No travel history Sick contacts: No sick contacts Physical examination: Vital signs reviewed General: nontoxic, no distress, appears at stated age Derm: warm, dry, intact Head: atraumatic, normocephalic, symmetric Eyes: anicteric sclera Mouth: no lip lesion, mucus membranes moist Cardiovascular: S1 S2 reg, no murmur Lungs: CTA bilateral, no rhonchi, no rales, no accessory muscle use Abdominal: soft, non-tender to palpation Extremities: No cyanosis, clubbing, or pedal edema. Neuro: Alert, Gross neurological examination did not reveal any focal deficits. Cranial nerves II to XII grossly intact. Bilateral upper and lower extremity muscle strength and sensation intact. Psych: well appearing, appropriate affect Assessment/Plan: Patient is a 58-year-old male with history of perianal abscess, GERD, hypertension presented to the emergency department for perirectal pain that started about 5 days ago. Patient is seen in the surgical unit for consultation for medical management and surgical clearance. Active: #. Vitamin D deficiency Restart home colecalciferol 125 mcg daily #. Hypertension Restart lisinopril hydrochlorothiazide 20-25 mg once daily #. Hyperlipidemia Restart Lipitor 10 mg daily #. Pedunculated lesion in the second portion of the duodenum Consult GI Consider EGD for further evaluation #. Leukocytosis, likely secondary to perianal abscess #. Elevated CRP, likely secondary to underlying inflammatory process WBC 13.53 CRP 5.0 Monitor morning CBC #. Hyponatremia Sodium 134 Continue normal saline at 130 cc an hour Monitor morning CMP #. Hyperglycemia, with no documented history of diabetes mellitus Glucose 123 Accu-Cheks every 6 hours Obtain hemoglobin A1c #. Left perianal abscess Patient is cleared for surgery from medical standpoint. Defer management of pain control and DVT prophylaxis to primary surgical team. Patient is scheduled for an incision and drainage in the OR on 03/27/2024. Obtain body fluid culture of the perianal abscess Consult infectious disease CODE STATUS: Full code Discussed with: Patient Attestation: I have personally seen and examined the patient with Residentcurtiewed the documentation and participated and agree with the assessment and plan as written. Aram Das MD 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; spinal fusion L4-L5 Past Anesthesia/Blood Transfusion Reactions: No Reported Reaction Past Psychological History: Anxiety, Depression Smoking Status: Current every day smoker Past Alcohol Use History: Daily Past Drug Use History: Marijuana - Past Family History Mother Family Medical History: Cancer Medications and Allergies Home Medications Medication Instructions Recorded Confirmed Type ALPRAZolam [Xanax] 1 mg PO BID PRN 11/09/19 03/27/24 History Lisinopril-Hctz 20-25 mg 1 tab PO DAILY 11/09/19 03/27/24 History [Zestoretic 20-25] HYDROcodone/APAP 10-325MG [[place] 1 tab PO Q6H PRN MDD 4 TABLETS 08/25/20 03/27/24 History 10-325] DAILY Atorvastatin [Lipitor] 10 mg PO DAILY 03/27/24 03/27/24 History Cholecalciferol [Vitamin D3 (125 125 mcg PO DAILY 03/27/24 03/27/24 History Mcg = 5000 Iu)] Slow-Mag 71.5mg 71.5 mg PO DAILY 03/27/24 03/27/24 History Allergies Allergy/AdvReac Type Severity Reaction Status Date / Time aspirin AdvReac Nausea Verified 03/27/24 07:50 NSAIDS (Non-Steroidal AdvReac Nausea Verified 03/27/24 07:50 Anti-Inflamma Physical Exam Vitals: Vital Signs Temp Pulse Resp BP Pulse Ox 03/27/24 02:35 98.7 F 106 H 18 127/65 96 03/26/24 23:32 97 16 110/67 93 L 03/26/24 15:44 98.1 F 121 H 16 154/84 95 Intake and Output 03/26/24 03/27/24 03/27/24 22:59 06:59 14:59 Other: Weight 136.078 kg Results CBC & Chem 7: 03/27/24 04:09 03/27/24 04:09 Labs: Abnormal Lab Results - Last 24 Hours (Table) 03/26/24 03/26/24 Range/Units 17:55 17:55 WBC 15.4 H (3.8-10.6) k/uL Neutrophils # 13.1 H (1.3-7.7) k/uL Sodium 130 L (137-145) mmol/L Chloride 94 L (98-107) mmol/L Glucose 147 H (74-99) mg/dL C-Reactive Protein 5.0 H (<1.0) mg/dL
[2024-03-27] MEDS: PIPERACILLIN-TAZOBACTAM 3.375 GM in SODIUM CHLORIDE 0.9% 100 ML IVPB SCH (11:22)
[2024-03-27] MEDS: HYDROmorphone 1 MG/ML 1 ML SYRINGE IVP PRN (13:43)
[2024-03-27] MEDS: LIDOCAINE 1% INJ 10MG/ML (20 ML MDV) SQ ONE ×2 (14:58→15:52)
[2024-03-27] MEDS: IV FLUID CONTINUATION 1,000 ML IV ONE (15:11)
[2024-03-27] MEDS: DEXAMETHASONE SOD PHOSPHATE 4 MG/ML 1 ML VIAL IVP STA (15:19)
[2024-03-27] MEDS: ONDANSETRON 4 MG/2 ML VIAL IVP PRN (15:19)
[2024-03-27] MEDS: FAMOTIDINE 20 MG/2 ML VIAL IV STA (15:20)
--- NOTE | 2024-03-27 16:01 | P.OP ---
Date of Procedure: 03/27/24 Preoperative Diagnosis: Perianal Abscess Postoperative Diagnosis: Perianal Abscess Procedure(s) Performed: Incision and Drainage of Perianal Abscess Anesthesia: MINDA Surgeon: Kennedy Hartman Pathology: other (Cultures Sent) Condition: stable Disposition: PACU Description of Procedure: The patient was brought back to the operating suite and placed in the lithotomy position. The patient was given anesthesia and intubated. A timeout was performed prior to beginning the procedure. An #11 blade was used to make a perianal incision on both sides of the anal canal. I used my finger to break up loculations on both side and eventually purulent fluid was expressed from the incisions. Cultures were taken of this fluid. I used my finger to break up more loculations. The incision sites were then irrigated with saline. The wounds were then packed with 0.5 inch iodoform packing. A sterile dressing was applied. The patient tolerated the procedure well and was sent to the PACU in stable condition.
[2024-03-27] MEDS: IPRATROPIUM-ALBUTEROL 3 ML NEB INHALATION STA (16:09)
[2024-03-27 20:14] LABS: Glucose,Whole Blood 131 mg/dL (70-110)
[2024-03-27] MEDS: ATORVASTATIN 10 MG TAB PO SCH (20:50)
[2024-03-27] MEDS: HYDROcodone/APAP 10-325MG 1 EACH TAB PO PRN (20:58)
[2024-03-28 07:19] LABS: Glucose,Whole Blood 124 mg/dL (70-110)
--- NOTE | 2024-03-28 07:24 | P.CONS ---
History of Present Illness - Reason for Consult Consult date: 03/27/24 Perianal abscess Requesting physician: Aram Das - Chief Complaint Perirectal pain x 5 days - History of Present Illness Patient is a 58-year-old male with a past medical history significant for osteoarthritis hypertension reflux previous history of perirectal abscess presenting to the hospital for evaluation of perirectal pain that apparently has been getting worse over the last 5 days before presentation to the hospital patient describing the pain to be sharp moderate intensity without any radiation patient denies having any drainage from the perirectal area and no diarrhea or constipation denies high-grade fever or any chills with the symptoms the patient was in the hospital on arrival to the ER patient was afebrile and no fever have been recorded subsequently patient was not tachycardic or hypotensive and no hypoxemia he did have a white count of 15.4 creatinine 0.88 electrolyte has been normal liver enzymes normal patient did have abdominal pelvis CT with evidence of left perianal abscess extending from 12 to 2 o'clock position pedunculated lesion thought to be present in the second patient the duodenum on the medial aspect patient did receive a dose of Unasyn in the ER subsequently has been admitted to hospital infectious disease was consulted for further management of antibiotic therapy Review of Systems Positive point and negatives has been mentioned in the HPI, complete review of systems was performed and all other systems are negative Past Medical History Past Medical History: GERD/Reflux, Hypertension, Osteoarthritis (OA) Additional Past Medical History / Comment(s): varicose veins, arthritis in back, degenerative disks, herniated disk, spondylolysis, History of Any Multi-Drug Resistant Organisms: None Reported Past Surgical History: Back Surgery, Orthopedic Surgery Additional Past Surgical History / Comment(s): surgery for fx jaw, surgery for F x nose, left knee arthroscopy, 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; spinal fusion L4-L5 Past Anesthesia/Blood Transfusion Reactions: No Reported Reaction Additional Past Anesthesia/Blood Transfusion Reaction / Comm: never had blood transfusion Past Psychological History: Anxiety, Depression Smoking Status: Current every day smoker Past Alcohol Use History: Daily Past Drug Use History: Marijuana - Past Family History Mother Family Medical History: Cancer Medications and Allergies Home Medications Medication Instructions Recorded Confirmed Type ALPRAZolam [Xanax] 1 mg PO BID PRN 11/09/19 03/27/24 History Lisinopril-Hctz 20-25 mg 1 tab PO DAILY 11/09/19 03/27/24 History [Zestoretic 20-25] HYDROcodone/APAP 10-325MG [[place] 1 tab PO Q6H PRN MDD 4 TABLETS 08/25/20 03/27/24 History 10-325] DAILY Atorvastatin [Lipitor] 10 mg PO DAILY 03/27/24 03/27/24 History Cholecalciferol [Vitamin D3 (125 125 mcg PO DAILY 03/27/24 03/27/24 History Mcg = 5000 Iu)] Slow-Mag 71.5mg 71.5 mg PO DAILY 03/27/24 03/27/24 History Allergies Allergy/AdvReac Type Severity Reaction Status Date / Time aspirin AdvReac Nausea Verified 03/27/24 07:50 NSAIDS (Non-Steroidal AdvReac Nausea Verified 03/27/24 07:50 Anti-Inflamma Physical Exam Vitals: Vital Signs Temp Pulse Pulse Resp BP BP Pulse Ox 03/27/24 09:22 98.4 F 97 16 104/70 93 L 03/27/24 09:11 98.6 F 104 H 18 120/79 96 03/27/24 02:35 98.7 F 106 H 18 127/65 96 03/26/24 23:32 97 16 110/67 93 L 03/26/24 15:44 98.1 F 121 H 16 154/84 95 Intake and Output 03/26/24 03/27/24 03/27/24 22:59 06:59 14:59 Other: Weight 136.078 kg 136.078 kg GENERAL DESCRIPTION: Middle-aged male lying in bed, no distress. No tachypnea or accessory muscle of respiration use. HEENT: Shows Pallor , no scleral icterus. Oral mucous membrane is dry. No pharyngeal erythema or thrush NECK: Trachea central, no thyromegaly. LUNGS: Unlabored breathing. Clear to auscultation anteriorly. No wheeze or crackle. HEART: S1, S2, regular rate and rhythm. No loud murmur ABDOMEN: Soft, perirectal area did have some swelling but no pustules or draining sinus was noticed EXTREMITIES: No edema of feet. SKIN: No rash, no masses palpable. NEUROLOGICAL: The patient is awake, alert, oriented x3, mood and affect normal. Results CBC & Chem 7: 03/27/24 04:09 03/27/24 04:09 Labs: Abnormal Lab Results - Last 24 Hours (Table) 03/26/24 03/26/24 03/27/24 Range/Units 17:55 17:55 04:09 WBC 15.4 H 13.53 H (3.8-10.6) k/uL MCHC 31.8 L (32.0-37.0) g/dL MPV 8.9 L (9.5-12.2) FL Immature Gran # 0.08 H (0.00-0.04) X 10*3/uL Neutrophils # 13.1 H 10.80 H (1.3-7.7) k/uL Monocytes # 1.12 H (0.20-1.00) X 10*3/uL Sodium 130 L (137-145) mmol/L Chloride 94 L (98-107) mmol/L BUN/Creatinine Ratio (12.00-20.00) Ratio Glucose 147 H (74-99) mg/dL C-Reactive Protein 5.0 H (<1.0) mg/dL 03/27/24 Range/Units 04:09 WBC (3.8-10.6) k/uL MCHC (32.0-37.0) g/dL MPV (9.5-12.2) FL Immature Gran # (0.00-0.04) X 10*3/uL Neutrophils # (1.3-7.7) k/uL Monocytes # (0.20-1.00) X 10*3/uL Sodium 134 L (137-145) mmol/L Chloride (98-107) mmol/L BUN/Creatinine Ratio 11.22 L (12.00-20.00) Ratio Glucose 123 H (74-99) mg/dL C-Reactive Protein (<1.0) mg/dL Assessment and Plan (1) Leukocytosis Current Visit: Yes Status: Acute Code(s): D72.829 - ELEVATED WHITE BLOOD CELL COUNT, UNSPECIFIED SNOMED Code(s): 028699562 (2) Perianal abscess Current Visit: Yes Status: Acute Code(s): K61.0 - ANAL ABSCESS SNOMED Code(s): 67313771 Plan: 1patient presented to hospital with perirectal pain and this patient did have previous history of perianal abscess about 2 years ago now presenting with pain and has been diagnosed with a perianal abscess on the left side with no evidence of any pustules or draining sinus on current examination likely from enteric gram-negative pathogen and will need to cover for both aerobes and anaerobes 2will empirically start the patient on Zosyn 3.375 g every 8 hours 3will need aerobic and anaerobic coverage at the time of surgical drainage of this abscess We will follow on clinical condition and cultures to further adjust medication if needed Thank you for this consultation we will follow the patient along with you Dictation was produced using [employer] dictation software. please excuse any grammatical, word or spelling errors. Time with Patient: Greater than 30
[2024-03-28] MEDS: CHOLECALCIFEROL 125 MCG (5000 IU) TABLET PO SCH (08:48)
[2024-03-28 09:46] LABS: Basophils # (A) 0.03 X 10*3/uL (0.00-0.10); Basophils % (A) 0.2 %; Eosinophils # (A) 0.01 X 10*3/uL (0.04-0.35); Eosinophils % (A) 0.1 %; HGB 14.2 g/dL (13.0-17.0); Lymphocytes # (A) 0.76 X 10*3/uL (0.90-5.00); Lymphocytes % (A) 4.6 %; MCH 30.5 pg (27.0-32.0); MCHC 32.3 g/dL (32.0-37.0); MCV 94.6 FL (80.0-97.0); Mean Platelet Volume 9.5 FL (9.5-12.2); Monocytes # (A) 1.08 X 10*3/uL (0.20-1.00); Monocytes % (A) 6.6 %; NRBC Per 100 WBC 0 X 10*3/uL (0.00-0.01); Neutrophils # (A) 14.42 X 10*3/uL (1.80-7.70); Neutrophils % (A) 88.1 %; Platelet Count 230 X 10*3/uL (140-440); RBC 4.65 X 10*6/uL (4.40-5.60); RDW 12.5 % (11.5-14.5); WBC 16.37 X 10*3/uL (4.50-10.00)
[2024-03-28 10:09] LABS: Carbon Dioxide 28.2 mmol/L (21.6-31.8); Chloride 98 mmol/L (96-109); Glucose 120 mg/dL (70-110); Potassium 4.8 mmol/L (3.5-5.5); Sodium 135 mmol/L (135-145)
[2024-03-28 10:10] LABS: ALT 13 U/L (10-49); AST 23 U/L (14-35); Albumin 3.4 g/dL (3.8-4.9); Albumin/Globulin Ratio 1.13 Ratio (1.60-3.17); Alkaline Phosphatase 72 U/L (41-126); Calcium 8.5 mg/dL (8.7-10.3); Total Bilirubin 0.5 mg/dL (0.3-1.2); Total Protein 6.4 g/dL (6.2-8.2)
[2024-03-28 12:24] LABS: Glucose,Whole Blood 123 mg/dL (70-110)
--- NOTE | 2024-03-28 16:16 | P.PN ---
Subjective Progress Note Date: 03/28/24 Principal diagnosis: Reason for follow-up is left perianal abscess Patient is a 58-year-old male with a past medical history significant for osteoarthritis hypertension reflux previous history of perirectal abscess presenting to the hospital for evaluation of perirectal pain patient did have a CT suggestive of left perianal abscess and the patient is status post surgical drainage of this abscess on 03/27/2024. On today's evaluation that is 03/28/2024, patient did not have any fever and denies any chills, patient is breathing comfortably on room air, patient with no chest pain or cough patient did not have any abdominal pain nausea vomiting has been complaining of more drainage from his drainage site. Patient white count is 16.37, creat is 1.0 with a cultures currently pending Objective - Vital Signs Vital signs: Vital Signs Temp 98.0 F 03/28/24 13:02 Pulse 87 03/28/24 13:02 Resp 16 03/28/24 13:02 BP 139/53 03/28/24 13:02 Pulse Ox 93 L 03/28/24 13:02 FiO2 Intake & Output 03/27/24 03/28/24 03/28/24 18:59 06:59 18:59 Intake Total 1310 480 Output Total 10 800 Balance 1300 -800 480 Weight 136.078 kg Intake: IV 350 Oral 960 480 Output: Urine 800 Estimated Blood Loss 10 Other: Voiding Method Toilet Urinal Urinal # Voids 3 - Exam GENERAL DESCRIPTION: Middle-age male lying in bed in no distress RESPIRATORY SYSTEM: Unlabored breathing , decreased breath sounds at bases HEART: S1 S2 regular rate and rhythm , ABDOMEN: Soft , no tenderness EXTREMITIES: No edema feet - Labs CBC & Chem 7: 03/28/24 03:06 03/28/24 03:06 Labs: Abnormal Lab Results - Last 24 Hours (Table) 03/27/24 03/27/24 03/28/24 Range/Units 04:09 20:13 03:06 WBC 16.37 H (4.50-10.00) X 10*3/uL Immature Gran # 0.07 H (0.00-0.04) X 10*3/uL Neutrophils # 14.42 H (1.80-7.70) X 10*3/uL Lymphocytes # 0.76 L (0.90-5.00) X 10*3/uL Monocytes # 1.08 H (0.20-1.00) X 10*3/uL Eosinophils # 0.01 L (0.04-0.35) X 10*3/uL BUN/Creatinine Ratio (12.00-20.00) Ratio Glucose (70-110) mg/dL POC Glucose (mg/dL) 131 H (70-110) mg/dL Hemoglobin A1c 6.2 H (<=6.0) % Calcium (8.7-10.3) mg/dL Albumin (3.8-4.9) g/dL Albumin/Globulin Ratio (1.60-3.17) Ratio 03/28/24 03/28/24 03/28/24 Range/Units 03:06 07:18 12:22 WBC (4.50-10.00) X 10*3/uL Immature Gran # (0.00-0.04) X 10*3/uL Neutrophils # (1.80-7.70) X 10*3/uL Lymphocytes # (0.90-5.00) X 10*3/uL Monocytes # (0.20-1.00) X 10*3/uL Eosinophils # (0.04-0.35) X 10*3/uL BUN/Creatinine Ratio 11.00 L (12.00-20.00) Ratio Glucose 120 H (70-110) mg/dL POC Glucose (mg/dL) 124 H 123 H (70-110) mg/dL Hemoglobin A1c (<=6.0) % Calcium 8.5 L (8.7-10.3) mg/dL Albumin 3.4 L (3.8-4.9) g/dL Albumin/Globulin Ratio 1.13 L (1.60-3.17) Ratio Assessment and Plan (1) Leukocytosis Current Visit: Yes Status: Acute Code(s): D72.829 - ELEVATED WHITE BLOOD CELL COUNT, UNSPECIFIED SNOMED Code(s): 268947656 (2) Perianal abscess Current Visit: Yes Status: Acute Code(s): K61.0 - ANAL ABSCESS SNOMED Code(s): 16541937 Plan: 1patient presented to hospital with perirectal pain and this patient did have previous history of perianal abscess about 2 years ago now presenting with pain and has been diagnosed with a perianal abscess on the left side with no evidence of any pustules or draining sinus on current examination likely from enteric gram-negative pathogen and will need to cover for both aerobes and anaerobes 2patient is status post surgical drainage of the abscess and aerobic and anaerobic coverage at the time of surgical drainage of this abscess which are currently pending 3patient currently being treated with Zosyn white count slightly up today will be monitored closely Dictation was produced using [employer] software. please excuse any grammatical, word or spelling errors. Time with Patient: Less than 30
[2024-03-28 17:11] LABS: Glucose,Whole Blood 115 mg/dL (70-110)
[2024-03-28 19:48] LABS: Glucose,Whole Blood 147 mg/dL (70-110)
--- NOTE | 2024-03-28 21:08 | P.PN ---
Subjective Progress Note Date: 03/28/24 Patient is evaluated today resting in bed on the medical floor. He is postoperative day #1 I&D of a perianal abscess. Incisions are made on both sides of the anal canal and cultures were sent. At this time patient remains on IV Zosyn. IV fluids have been decreased to 75 mL/h. Blood pressure medication will be held as patient is currently hypotensive into the 90s to low 100s. He remains afebrile. He was hoping for discharge home today but will likely remain in the hospital pending surgical cultures. Review of Systems Constitutional: Denied any fatigue denied any fever. Cardio vascular: denied any chest pain, palpitations Gastrointestinal: denied any nausea, vomiting, diarrhea Pulmonary: Denied any shortness of breath cough Neurologic denied any new focal deficits All inpatient medications were reviewed and appropriate changes in these medications as dictated in the interval history and assessment and plan. PHYSICAL EXAMINATION: GENERAL: The patient is alert and oriented x3, not in any acute distress. Well developed, well nourished. HEENT: Pupils are round and equally reacting to light. EOMI. No scleral icterus. No conjunctival pallor. Normocephalic, atraumatic. No pharyngeal erythema. No thyromegaly. CARDIOVASCULAR: S1 and S2 present. No murmurs, rubs, or gallops. PULMONARY: Chest is clear to auscultation, no wheezing or crackles. ABDOMEN: Soft, nontender, nondistended, normoactive bowel sounds. No palpable organomegaly. MUSCULOSKELETAL: No joint swelling or deformity. EXTREMITIES: No cyanosis, clubbing, or pedal edema. NEUROLOGICAL: Gross neurological examination did not reveal any focal deficits. SKIN: No rashes. Surgical bed was difficult for evaluation today as there was stool contaminating. Assessment and plan Left perianal abscess. Continue to monitor I&D pending the tissue cultures ID following closely patient remains on IV Zosyn at this time History of hypertension currently normotensive and connected home with medical hydrochlorothiazide combination. Hyperlipidemia A pedunculated lesion to second portion of duodenum surgery following Leukocytosis secondary to the perianal abscess Elevated CRP secondary to above Hyponatremia hypovolemic improving with normal saline. Normal saline will be decreased to 75 mL/h GI prophylaxis DVT prophylaxis as per primary service Full code The impression and plan of care has been dictated by Diane Blackman, Nurse Practitioner as directed. Dr. Venecia MD I have performed a history and physical examination and medical decision making of this patient, discussed the same with the dictator, and agree with the dictators assessment and plan as written, documented as a scribe. Based on total visit time, I have performed more than 50% of this visit. Objective - Vital Signs Vital signs: Vital Signs Temp 98.0 F 03/28/24 13:02 Pulse 87 03/28/24 13:02 Resp 16 03/28/24 13:02 BP 139/53 03/28/24 13:02 Pulse Ox 93 L 03/28/24 13:02 FiO2 Intake & Output 03/27/24 03/28/24 03/28/24 18:59 06:59 18:59 Intake Total 1310 480 Output Total 10 800 Balance 1300 -800 480 Weight 136.078 kg Intake: IV 350 Oral 960 480 Output: Urine 800 Estimated Blood Loss 10 Other: Voiding Method Toilet Urinal Urinal # Voids 3 - Labs CBC & Chem 7: 03/28/24 03:06 03/28/24 03:06 Labs: Abnormal Lab Results - Last 24 Hours (Table) 03/27/24 03/27/24 03/28/24 Range/Units 04:09 20:13 03:06 WBC 16.37 H (4.50-10.00) X 10*3/uL Immature Gran # 0.07 H (0.00-0.04) X 10*3/uL Neutrophils # 14.42 H (1.80-7.70) X 10*3/uL Lymphocytes # 0.76 L (0.90-5.00) X 10*3/uL Monocytes # 1.08 H (0.20-1.00) X 10*3/uL Eosinophils # 0.01 L (0.04-0.35) X 10*3/uL BUN/Creatinine Ratio (12.00-20.00) Ratio Glucose (70-110) mg/dL POC Glucose (mg/dL) 131 H (70-110) mg/dL Hemoglobin A1c 6.2 H (<=6.0) % Calcium (8.7-10.3) mg/dL Albumin (3.8-4.9) g/dL Albumin/Globulin Ratio (1.60-3.17) Ratio 03/28/24 03/28/24 03/28/24 Range/Units 03:06 07:18 12:22 WBC (4.50-10.00) X 10*3/uL Immature Gran # (0.00-0.04) X 10*3/uL Neutrophils # (1.80-7.70) X 10*3/uL Lymphocytes # (0.90-5.00) X 10*3/uL Monocytes # (0.20-1.00) X 10*3/uL Eosinophils # (0.04-0.35) X 10*3/uL BUN/Creatinine Ratio 11.00 L (12.00-20.00) Ratio Glucose 120 H (70-110) mg/dL POC Glucose (mg/dL) 124 H 123 H (70-110) mg/dL Hemoglobin A1c (<=6.0) % Calcium 8.5 L (8.7-10.3) mg/dL Albumin 3.4 L (3.8-4.9) g/dL Albumin/Globulin Ratio 1.13 L (1.60-3.17) Ratio Assessment and Plan Time with Patient: Less than 30
--- NOTE | 2024-03-29 00:08 | P.PN ---
Progress Note - Text Progress Note Date: 03/28/24 No acute events overnight. Having some perirectal pain but pain is controlled. Denies fevers. VSS General-NAD Abdomen-soft NTND, dressing over perirectal incision sites C/D/I 58 year old male POD #1 Incision and Drainage Perirectal Abscess -Regular Diet -Cultures Pending -Zosyn -ID recs -Pain Control -Daily Packing Changes per Nursing Staff -AM labs Kennedy Hartman DO [facility] [phone]
[2024-03-29 07:40] LABS: Glucose,Whole Blood 102 mg/dL (70-110)
[2024-03-29 12:13] LABS: Glucose,Whole Blood 97 mg/dL (70-110)
[2024-03-29 12:21] VITALS: RESP 16
--- NOTE | 2024-03-29 13:35 | P.PN ---
Subjective Progress Note Date: 03/29/24 Principal diagnosis: Reason for follow-up is left perianal abscess Patient is a 58-year-old male with a past medical history significant for osteoarthritis hypertension reflux previous history of perirectal abscess presenting to the hospital for evaluation of perirectal pain patient did have a CT suggestive of left perianal abscess and the patient is status post surgical drainage of this abscess on 03/27/2024. On today's evaluation that is 03/29/2024, Patient is afebrile patient is currently on room air and denies having any shortness of breath, the patient denies any chest pain or cough, the patient denies any nausea vomiting did not have any abdominal pain still complains some burning pain to the perirectal area. No lab draw today culture currently growing E. coli and strep Objective - Vital Signs Vital signs: Vital Signs Temp 97.8 F 03/29/24 07:51 Pulse 92 03/29/24 07:51 Resp 17 03/29/24 07:51 BP 112/68 03/29/24 07:51 Pulse Ox 96 03/29/24 07:51 FiO2 Intake & Output 03/28/24 03/29/24 03/29/24 18:59 06:59 18:59 Intake Total 2580 240 Output Total 1600 400 Balance 980 -400 240 Intake: Oral 2580 240 Output: Urine 1600 400 Other: Voiding Method Urinal Urinal Urinal # Bowel Movements 1 - Exam GENERAL DESCRIPTION: Middle-age male lying in bed in no distress RESPIRATORY SYSTEM: Unlabored breathing , decreased breath sounds at bases HEART: S1 S2 regular rate and rhythm , ABDOMEN: Soft , no tenderness EXTREMITIES: No edema feet - Labs CBC & Chem 7: 03/28/24 03:06 03/28/24 03:06 Labs: Abnormal Lab Results - Last 24 Hours (Table) 03/28/24 03/28/24 03/28/24 Range/Units 12:22 17:09 19:43 POC Glucose (mg/dL) 123 H 115 H 147 H (70-110) mg/dL Microbiology - Last 24 Hours (Table) 03/27/24 15:51 Gram Stain - Preliminary Rectum Wound Culture - Preliminary Escherichia coli 03/27/24 15:50 Gram Stain - Preliminary Rectum Wound Culture - Preliminary Escherichia coli Beta Hemolytic Strep Group C Assessment and Plan (1) Leukocytosis Current Visit: Yes Status: Acute Code(s): D72.829 - ELEVATED WHITE BLOOD CELL COUNT, UNSPECIFIED SNOMED Code(s): 310742384 (2) Perianal abscess Current Visit: Yes Status: Acute Code(s): K61.0 - ANAL ABSCESS SNOMED Code(s): 56094089 Plan: 1patient presented to hospital with perirectal pain and this patient did have previous history of perianal abscess about 2 years ago now presenting with pain and has been diagnosed with a perianal abscess on the left side with no evidence of any pustules or draining sinus on current examination likely from enteric gram-negative pathogen and will need to cover for both aerobes and anaerobes 2patient is status post surgical drainage of the abscess and aerobic and an aerobic coverage at the time of surgical drainage of this abscess which are currently growing E. coli and strep sensitivities pending 3patient currently being treated with Zosyn while waiting for the culture to finalize determine discharge antibiotics Dictation was produced using [employer] dictation software. please excuse any grammatical, word or spelling errors. Time with Patient: Less than 30
--- NOTE | 2024-03-29 15:58 | P.PN ---
Subjective Progress Note Date: 03/29/24 Patient is evaluated today resting in bed on the medical floor. He is postoperative day #1 I&D of a perianal abscess. Incisions are made on both sides of the anal canal and cultures were sent. At this time patient remains on IV Zosyn. IV fluids have been decreased to 75 mL/h. Blood pressure medication will be held as patient is currently hypotensive into the 90s to low 100s. He remains afebrile. He was hoping for discharge home today but will likely remain in the hospital pending surgical cultures. 03/29/2024 Patient is evaluated today postoperative day #2 I&D of the perianal abscess. He is currently pending surgical cultures luminary showing E. coli and beta- hemolytic strep group C. He is on IV Zosyn. Review of Systems Constitutional: Denied any fatigue denied any fever. Cardio vascular: denied any chest pain, palpitations Gastrointestinal: denied any nausea, vomiting, diarrhea Pulmonary: Denied any shortness of breath cough Neurologic denied any new focal deficits All inpatient medications were reviewed and appropriate changes in these medications as dictated in the interval history and assessment and plan. PHYSICAL EXAMINATION: GENERAL: The patient is alert and oriented x3, not in any acute distress. Well developed, well nourished. HEENT: Pupils are round and equally reacting to light. EOMI. No scleral icterus. No conjunctival pallor. Normocephalic, atraumatic. No pharyngeal erythema. No thyromegaly. CARDIOVASCULAR: S1 and S2 present. No murmurs, rubs, or gallops. PULMONARY: Chest is clear to auscultation, no wheezing or crackles. ABDOMEN: Soft, nontender, nondistended, normoactive bowel sounds. No palpable organomegaly. MUSCULOSKELETAL: No joint swelling or deformity. EXTREMITIES: No cyanosis, clubbing, or pedal edema. NEUROLOGICAL: Gross neurological examination did not reveal any focal deficits. SKIN: No rashes. Surgical bed was difficult for evaluation today as there was stool contaminating. Assessment and plan Left perianal abscess. Continue to monitor I&D pending the tissue cultures ID following closely patient remains on IV Zosyn at this time History of hypertension currently normotensive and connected home with medical hydrochlorothiazide combination. Hyperlipidemia A pedunculated lesion to second portion of duodenum surgery following Leukocytosis secondary to the perianal abscess Elevated CRP secondary to above Hyponatremia hypovolemic improving with normal saline. Normal saline will be decreased to 75 mL/h GI prophylaxis DVT prophylaxis as per primary service Full code The impression and plan of care has been dictated by Diane Blackman Nurse Practitioner as directed. Dr. Venecia MD I have performed a history and physical examination and medical decision making of this patient, discussed the same with the dictator, and agree with the dictators assessment and plan as written, documented as a scribe. Based on total visit time, I have performed more than 50% of this visit. Objective - Vital Signs Vital signs: Vital Signs Temp 97.7 F 03/29/24 12:20 Pulse 79 03/29/24 12:20 Resp 16 03/29/24 12:20 BP 151/76 03/29/24 12:20 Pulse Ox 94 L 03/29/24 12:20 FiO2 Intake & Output 03/28/24 03/29/24 03/29/24 18:59 06:59 18:59 Intake Total 2580 720 Output Total 1600 400 Balance 980 -400 720 Intake: Oral 2580 720 Output: Urine 1600 400 Other: Voiding Method Urinal Urinal Urinal # Bowel Movements 1 - Labs CBC & Chem 7: 03/28/24 03:06 03/28/24 03:06 Labs: Abnormal Lab Results - Last 24 Hours (Table) 03/28/24 03/28/24 Range/Units 17:09 19:43 POC Glucose (mg/dL) 115 H 147 H (70-110) mg/dL Microbiology - Last 24 Hours (Table) 03/27/24 15:51 Gram Stain - Preliminary Rectum Wound Culture - Preliminary Escherichia coli 03/27/24 15:50 Gram Stain - Preliminary Rectum Wound Culture - Preliminary Escherichia coli Beta Hemolytic Strep Group C Assessment and Plan Time with Patient: Less than 30
[2024-03-29 17:13] LABS: Glucose,Whole Blood 108 mg/dL (70-110)
--- NOTE | 2024-03-30 00:46 | P.PN ---
Progress Note - Text Progress Note Date: 03/29/24 No acute events overnight. Having some perirectal pain but pain is controlled. Denies fevers. Preliminary wound cultures are growing E. Coli and Beta Hemolytic Strep VSS General-NAD Abdomen-soft NTND, dressing over perirectal incision sites C/D/I 58 year old male POD #1 Incision and Drainage Perirectal Abscess -Regular Diet -Final Cultures Pending -Zosyn -ID recs -Pain Control -Daily Packing Changes per Nursing Staff -AM labs Kennedy Hartman DO [facility] [phone]
[2024-03-30 13:48] VITALS: BP 151/76; PULSE 65; TEMP 97.7
--- NOTE | 2024-03-31 12:58 | P.PN ---
Subjective Progress Note Date: 03/30/24 Principal diagnosis: Reason for follow-up is left perianal abscess Patient is a 58-year-old male with a past medical history significant for osteoarthritis hypertension reflux previous history of perirectal abscess presenting to the hospital for evaluation of perirectal pain patient did have a CT suggestive of left perianal abscess and the patient is status post surgical drainage of this abscess on 03/27/2024. On today's evaluation that is 03/30/2023, patient has been afebrile, patient is breathing comfortably and is currently on room air, patient denies having any significant cough no chest pain, patient denies nausea vomiting or diarrhea. Complaining of pain to the right gluteal area drainage has decreased. Culture has been finalized with E. coli and strep Objective - Vital Signs Vital signs: Vital Signs Temp 97.9 F 03/30/24 07:24 Pulse 67 03/30/24 07:24 Resp 16 03/30/24 07:24 BP 129/75 03/30/24 07:24 Pulse Ox 96 03/30/24 07:24 FiO2 Intake & Output 03/29/24 03/30/24 03/30/24 18:59 06:59 18:59 Intake Total 2800 Output Total 700 Balance 2100 Intake: Oral 2800 Output: Urine 700 Other: Voiding Method Urinal Urinal Urinal # Voids 5 3 # Bowel Movements 1 0 - Exam GENERAL DESCRIPTION: Middle-age male lying in bed in no distress RESPIRATORY SYSTEM: Unlabored breathing , decreased breath sounds at bases HEART: S1 S2 regular rate and rhythm , ABDOMEN: Soft , no tenderness, right gluteal area wound base looks clean with no drainage EXTREMITIES: No edema feet - Labs CBC & Chem 7: 03/28/24 03:06 03/28/24 03:06 Labs: Microbiology - Last 24 Hours (Table) 03/27/24 15:51 Gram Stain - Preliminary Rectum Wound Culture - Preliminary Escherichia coli 03/27/24 15:50 Gram Stain - Preliminary Rectum Wound Culture - Preliminary Escherichia coli Beta Hemolytic Strep Group C Assessment and Plan (1) Leukocytosis Status: Acute Code(s): D72.829 - ELEVATED WHITE BLOOD CELL COUNT, UNSPECIFIED SNOMED Code(s): 474908494 (2) Perianal abscess Status: Acute Code(s): K61.0 - ANAL ABSCESS SNOMED Code(s): 15593907 Plan: 1patient presented to hospital with perirectal pain and this patient did have previous history of perianal abscess about 2 years ago now presenting with pain and has been diagnosed with a perianal abscess on the left side with no evidence of any pustules or draining sinus on current examination likely from enteric gra m-negative pathogen and will need to cover for both aerobes and anaerobes 2patient is status post surgical drainage of the abscess and aerobic and anaerobic coverage at the time of surgical drainage of this abscess which are currently growing E. coli and strep that is a sensitive pathogen 3patient has shown improvement and has been insisting on going home prescription for oral Augmentin has been sent and close outpatient follow-up Dictation was produced using [employer] dictation software. please excuse any grammatical, word or spelling errors. Time with Patient: Less than 30
== END 2024-03-30 14:36 | disposition home or self-care (01) | DRG 348 ==
LOC: EC 15:27 → 5NMEDONC 21:19 → OBSVTOIN 21:20 → 5NMEDONC 03-27 07:08
PROVIDERS: ADMIT Surgery; ATTEND Surgery
PROC: 0D9Q0ZZ Drainage of Anus, Open Approach (ICD-10-PCS; principal; 2024-03-27 10:45)
DX: K61.0 Anal abscess (principal); E87.1 Hypo-osmolality and hyponatremia; I10 Essential (primary) hypertension; K61.2 Anorectal abscess; K62.89 Other specified diseases of anus and rectum; F32.A Depression, unspecified; F41.9 Anxiety disorder, unspecified; K76.0 Fatty (change of) liver, not elsewhere classified; B96.20 Unspecified Escherichia coli [E. coli] as the cause of diseases classified elsewhere; B95.7 Other staphylococcus as the cause of diseases classified elsewhere; F17.210 Nicotine dependence, cigarettes, uncomplicated; Z79.899 Other long term (current) drug therapy; Z98.1 Arthrodesis status; E78.5 Hyperlipidemia, unspecified; E55.9 Vitamin D deficiency, unspecified; D72.829 Elevated white blood cell count, unspecified; Z88.6 Allergy status to analgesic agent
CPT/HCPCS: 36415; 74177; 80048; 80053; 83036; 83605; 85025; 86140; 87070; 87075; 87077; 87186; 87205; 96365; 96375; 99285